=== PATIENT | female | born 1940 | race Caucasian/White ===

== ENCOUNTER → 2018-01-30 08:03 | Outpatient (CLI) | payer MEDICARE, SELFPAY | PROVIDERS: Family Provider Family Medicine; PCP Family Medicine; Visit Provider Nurse Practitioner Women's Health | DX: Z12.31 Encounter for screening mammogram for malignant neoplasm of breast (principal) | CPT/HCPCS: 77063; 77067 ==

== ENCOUNTER → 2018-02-01 13:10 | Outpatient (CLI) | payer MEDICARE, SELFPAY | PROVIDERS: Family Provider Family Medicine; PCP Family Medicine; Visit Provider Nurse Practitioner Women's Health | DX: Z78.0 Asymptomatic menopausal state (principal) | CPT/HCPCS: 77080 ==

== ENCOUNTER → 2018-03-05 08:19 | Outpatient (CLI) | payer MEDICARE, SELFPAY ==
--- NOTE | 2018-03-05 08:21 | US_ITS ---
STUDY: ULTRASOUND OF THE FEMALE PELVIS - COMPLETE REASON FOR EXAM: Female, 77 years old. Uterine polyp. LMP: The patient is postmenopausal. TECHNIQUE: Transabdominal and Transvaginal. Transvaginal ultrasound was performed for better assessment of the uterus. TECHNICAL QUALITY: Adequate. COMPARISON: Comparison is made with prior study dated January 27, 2017 and March 06, 2017. FINDINGS: The uterus is anteverted and is in a midline position. The uterus measures 4.2 cm x 2.9 cm x 2.6 cm. There is a Nabothian cyst of the cervix. The endometrium measures 2.0 mm in thickness, and is hyperechoic. Multiple echogenic densities are seen within the endometrium. There is no demonstrated endometrial mass. The uterus is of heterogeneous echotexture. Focal calcifications are seen suggestive of fibroid change of bone no focal fibroid is seen. I.U.D. - The patient does not have an I.U.D. The right ovary is non-visualized. The left ovary is non-visualized. There is no fluid in the cul-de-sac. Polycystic ovary disease: No. US/Transvaginal Non- IMPRESSION: Heterogeneous appearance of the myometrium suggesting fibroid change with calcifications. Echogenic foci seen within the endometrium. Electronically Signed: Aristides Lyle MD at 14:19 EDT Tel [phone], Service support ,
--- NOTE | 2018-03-05 08:21 | US_ITS ---
STUDY: ULTRASOUND OF THE FEMALE PELVIS - COMPLETE REASON FOR EXAM: Female, 77 years old. Uterine polyp. LMP: The patient is postmenopausal. TECHNIQUE: Transabdominal and Transvaginal. Transvaginal ultrasound was performed for better assessment of the uterus. TECHNICAL QUALITY: Adequate. COMPARISON: Comparison is made with prior study dated January 27, 2017 and March 06, 2017. FINDINGS: The uterus is anteverted and is in a midline position. The uterus measures 4.2 cm x 2.9 cm x 2.6 cm. There is a Nabothian cyst of the cervix. The endometrium measures 2.0 mm in thickness, and is hyperechoic. Multiple echogenic densities are seen within the endometrium. There is no demonstrated endometrial mass. The uterus is of heterogeneous echotexture. Focal calcifications are seen suggestive of fibroid change of bone no focal fibroid is seen. I.U.D. - The patient does not have an I.U.D. The right ovary is non-visualized. The left ovary is non-visualized. There is no fluid in the cul-de-sac. Polycystic ovary disease: No. US/Pelvic (Non ) IMPRESSION: Heterogeneous appearance of the myometrium suggesting fibroid change with calcifications. Echogenic foci seen within the endometrium. Electronically Signed: rAistides Lyle MD at 14:19 EDT Tel [phone], Service support ,
== END ==
PROVIDERS: Family Provider Family Medicine; PCP Family Medicine; Visit Provider Nurse Practitioner Women's Health
DX: N84.0 Polyp of corpus uteri (principal)
CPT/HCPCS: 76830; 76856

== ENCOUNTER 2018-12-14 20:05 | Emergency (ER) | payer MEDICARE, SELFPAY ==
[2018-12-14 20:06] VITALS: BP 186/86; PULSE 116; RESP 17; TEMP 36.9; O2SAT 98; BMI 29.0
--- NOTE | 2018-12-14 20:43 | EKG12_ITS ---
Test Reason : PALPITATIONS Blood Pressure : / mmHG Vent. Rate : 124 BPM Atrial Rate : 113 BPM P-R Int : 000 ms QRS Dur : 082 ms QT Int : 328 ms P-R-T Axes : 000 -19 243 degrees QTc Int : 471 ms Atrial fibrillation with premature ventricular or aberrantly conducted complexes Nonspecific ST and T wave abnormality Poor R-wave Progression Abnormal ECG Confirmed by SUKHWINDER PHELAN, FRANCIS ([id number]), editorial project manager CHARBEL MINER ([id number]) on 12/17/2018 1:27:04 PM Referred By: KORI Confirmed By:FRANCIS PRETTY MD
--- NOTE | 2018-12-14 20:48 | RAD_ITS ---
STUDY: X-RAY CHEST REASON FOR EXAM: Female, 78 years old. Chest palpitation TECHNIQUE: AP portable COMPARISON: February 15, 2014 FINDINGS: There is minor scarring in the lower lobes. No focal infiltration is observed. Tiny calcified granulomata in the lower lobes There is no demonstrated pleural abnormality. Borderline cardiomegaly. Normal mediastinum. Tiny calcified left hilar nodes Normal visualized pulmonary arteries. Mildly calcified aortic arch and descending thoracic aorta. Dorsal spine demonstrates spondylosis. Normal visualized ribs, clavicles, and shoulders. There is no demonstrated abnormality of the visualized soft tissue structures of the upper abdomen. RAD/Chest 1 View (Portable) IMPRESSION: Old granulomatous disease. No acute cardiopulmonary pathology Electronically Signed: Kyle Saravia MD at 21:08 EDT , Service support ,
[2018-12-14] MEDS: 0.9% Normal Saline 1,000 ML 150 ML IV (20:53)
[2018-12-14] MEDS: dilTIAZem 25 MG/5 ML Vial 10 MG IV BOLUS ×2 (20:53→22:35)
[2018-12-14 21:04] LABS: Absolute Lymphocyte Count 1.68 X10^3/ul (0.83-4.51); Absolute Neutrophil Count 4.9 X10^3/uL (2.0-7.7); Basophil# 0.02 X10^3/uL; Basophil% 0.3 % (0-1); Eosinophil# 0.28 X10^3/uL; Eosinophils% 3.6 % (0-5); Hematocrit 43.1 % (37-47); Hemoglobin 14.5 g/dl (12.0-15.0); Lymphocyte # 1.68 X10^3/ul (4.0); Lymphocyte % 21.8 % (19-41); Mean Corp Hgb Conc 33.6 g/gl (32-36); Mean Corpuscular Hgb 30.9 pg (27.0-32.0); Mean Corpuscular Volume 91.9 fL (81-99); Mean Platelet Vol. 10.3 fl (6.2-12.0); Monocyte# 0.84 X10^3/uL; Monocyte% 10.9 % (0-10); Neutrophil # 4.87 X10^3/uL (2.7-7.7); Neutrophil % 63.3 % (47-70); Platelet Count 236 K/mm3 (150-450); RBC Distribution Width CV 13.2 % (11.6-14.6); RBC Distribution Width SD 43.7 fl (35.1-43.9); Red Blood Count 4.69 M/mm3 (4.2-5.4); White Blood Count 7.7 K/mm3 (4.4-11.0)
[2018-12-14 21:06] VITALS: BP 141/94; PULSE 103; RESP 21; O2SAT 97
[2018-12-14 21:09] LABS: POSITIVE COUNT NO; POSITIVE DIFFERENTIAL NO; POSITIVE MORPHOLOGY NO
[2018-12-14 21:22] LABS: Anion Gap 8 (5-15); BUN 22 mg/dL (7-18); BUN/Creat Ratio 25.1 RATIO (10-20); Calcium,Total 8.9 mg/dL (8.5-10.1); Chloride 108 mmol/L (98-107); Creatinine, Serum 0.88 mg/dL (0.55-1.02); EST Glomerular Filtration Rate 66 mL/min (>60); Est Glom Filt Rate - Afr Amer 80 mL/min (>60); Estimated Creatinine Clearance 38.46 ml/min; Glucose 110 mg/dL (74-106); Sodium Level 143 mmol/L (136-145); Thyroid Stim Hormone (TSH) 2.82 uIU/mL (0.358-3.74)
[2018-12-14 22:00] VITALS: BP 143/78; PULSE 113; RESP 21; O2SAT 96
--- NOTE | 2018-12-14 23:01 | ED.VISSUMM ---
- ER Visit Summary Date of Service: 12/14/18 Chief Complaint: Irregular heartbeat History of Present Illness: The patient is a 78 F with a history of A. fib but states she is normally in sinus rhythm. She developed palpitations yesterday. She denies chest pain. She is on Cardizem as well as Xarelto. Patient was previously seen by Dr. Mireles but is scheduled to see Dr. Ayala in February. Physical Examination: Blood pressure is 186/86, temperature 98.4, heart rate 116, respiratory rate 17, pulse ox 98% on room air. Patient sitting upright in bed no acute distress. Head and neck examination unremarkable. Heart is irregular tachycardic. Lung sounds are clear. Abdomen is soft and nontender. Test Results: EKG is A. fib at 124 with no acute ischemia. Chest x-ray shows old granulomatous disease. CBC and chemistry studies unremarkable. Troponin negative. TSH normal. Emergency Department Course and Treatment: Patient was initially given 10 mg of IV Cardizem. Heart rate improved from 120s down to approximate 100. Blood pressure is improved. An additional 10 mg of IV Cardizem is given and heart rate is down to 83. Patient remains in atrial fibrillation. She does not want to be cardioverted. I spoke with Dr. Ayala who patient is scheduled to see. Patient is to take her Cardizem twice daily and call the office to be seen earlier than February. Patient is in agreement with this plan. She understands that if she feels worse in any way she is to return to the emergency room immediately. Treatment Plan: [] Disposition: Discharge Impression: Atrial fibrillation This note was generated with Metranome dictation software. It may contain incorrect words, spelling, and punctuation that were not noted in review of the chart prior to signing ED Disposition - Plan for ED Patient: Disposition: Home or Assisted Living Instructions: Atrial Fibrillation Referrals: Ricardo Ayala MD [STAFF PHYSICIAN] - As soon as possible Additional Instructions: Per Dr Ayala - take your Cardizem twice a day. Call office on Monday to be seen sooner.
[2018-12-14 23:14] VITALS: BP 140/78; PULSE 92; RESP 18; O2SAT 97
== END 2018-12-14 23:20 | disposition home or self-care (01) ==
PROVIDERS: Emergency Provider Emergency Medicine; Family Provider Family Medicine; PCP Family Medicine
DX: I48.91 Unspecified atrial fibrillation (principal); I10 Essential (primary) hypertension; E78.00 Pure hypercholesterolemia, unspecified; Z79.01 Long term (current) use of anticoagulants; Z79.899 Other long term (current) drug therapy
CPT/HCPCS: 71045; 80048; 84443; 84484; 85025; 93005; 96361; 96374; 96376; 99285; J7030; A4216

== ENCOUNTER → 2019-01-24 | Outpatient (CLI) | payer MEDICARE, SELFPAY ==
[2019-01-03 11:27] VITALS: BMI 28.5
--- NOTE | 2019-01-24 09:41 | ECHOD_ITS ---
Reason For Study: Murmur Procedure This was a 2D Doppler, Color Flow transthoracic echocardiogram. Exam performed in department. Left Ventricle Normal LV size. Left ventricular systolic function is normal. The estimated ejection fraction is 65 %. There is evidence of diastolic dysfunction. No regional wall motion abnormalities noted. Right Ventricle Normal RV size. Normal systolic function. Atria The left atrium is mildly enlarged. The right atrium is mildly enlarged. No doppler evidence for ASD. Mitral Valve There is no mitral annular calcification. Normal mitral valve. Mild-Moderate (1-2+) eccentric mitral valve insufficiency. Tricuspid Valve Normal tricuspid valve. Mild to moderate (1-2+) eccentric tricuspid valve insufficiency. Right ventricular systolic pressure estimated to be 36 mmHg. Aortic Valve Trisinus/trileaflet aortic valve. Normal aortic valve. Mild (1+) aortic valve insufficiency. Pulmonic Valve The pulmonic valve is not well visualized. Trivial pulmonic valve insufficiency. Great Vessels Normal sized aortic root. Pericardium/Pleural No pericardial effusion. MMode/2D Measurements & Calculations LVIDd: 3.7 cm IVSd: 1.2 cm Ao root diam: 3.2 cm LVIDs: 1.9 cm LVPWd: 0.90 cm RVDd: 3.2 cm FS: 48.3 % LAV(MOD-bp): 42.7 ml LA A4 area: 17.8 cm2 LA dimension(2D): 3.5 cm LAV(MOD-bp) Indexed: 26.3 ml/m2 LAV(MOD-sp2): 34.8 ml LAV(MOD-sp4): 48.8 ml RA A4 area: 16.4 cm2 Doppler Measurements & Calculations MV E max sascha: 98.8 cm/sec Lat Peak E' Sascha: 9.4 cm/sec Med Peak E' Sascha: 5.8 cm/sec MV A max sascha: 104.2 cm/sec E/E' lat: 10.5 E/E' med: 17.0 MV E/A: 0.95 Ao V2 max: 144.8 cm/sec AI max sascha: 352.2 cm/sec LV V1 max: 103.3 cm/sec Ao max P.4 mmHg AI max P.6 mmHg LV V1 max P.3 mmHg AI dec slope: 118.6 cm/sec2 AI P1/2t: 869.5 msec PA V2 max: 118.7 cm/sec TR max sascha: 283.4 cm/sec TR max P.5 mmHg Interpretation Summary Left ventricular systolic function is normal. The estimated ejection fraction is 65 %. The left atrium is mildly enlarged. The right atrium is mildly enlarged. Mild-Moderate (1-2+) eccentric mitral valve insufficiency. Mild to moderate (1-2+) eccentric tricuspid valve insufficiency. Mild (1+) aortic valve insufficiency. Trivial pulmonic valve insufficiency. Right ventricular systolic pressure estimated to be 36 mmHg. There is evidence of diastolic dysfunction. Ordering Physician: Ricardo Ayala Referring Physician: Kailash Chu Performed By: Sadie Mascorro MURIEL
== END | disposition home or self-care (01) ==
LOC: CVS 09:41
PROVIDERS: Family Provider Family Medicine; PCP Family Medicine; Referring Provider Internal Medicine Cardiovascular Disease; Visit Provider Internal Medicine Cardiovascular Disease
DX: I25.10 Atherosclerotic heart disease of native coronary artery without angina pectoris (principal); I48.0 Paroxysmal atrial fibrillation; I34.0 Nonrheumatic mitral (valve) insufficiency; E78.5 Hyperlipidemia, unspecified; I10 Essential (primary) hypertension; I27.20 Pulmonary hypertension, unspecified; R01.1 Cardiac murmur, unspecified
CPT/HCPCS: 93306

== ENCOUNTER → 2019-02-05 | Outpatient (CLI) | payer MEDICARE, SELFPAY ==
[2019-02-05 09:33] VITALS: BMI 28.5
--- NOTE | 2019-02-05 09:53 | BI_ITS ---
MAMMOGRAPHY - BILATERAL SCREENING 3-D TOMOSYNTHESIS REASON FOR EXAM: Female, 78 years old. Bilateral Screening 3-D tomosynthesis PERTINENT HISTORY: No significant family history. TECHNIQUE: 2-D mammograms and 3-D Tomosynthesis of the breast (s) were performed. CAD was performed. COMPARISON: 01/30/2018, 01/27/2017, 01/14/2016 FINDINGS: The breast composition is composed of scattered fibroglandular density. Scattered benign calcifications are seen. No dense spiculated masses or suspicious microcalcifications are identified. No architectural distortion is identified. There is no skin thickening or retraction. There has been no significant change since the prior study. BI/SCREEN MAMM (CAD) W/YVETTE BILAT IMPRESSION: No mammographic signs of malignancy. Routine yearly mammograms recommended. ASSESSMENT CATEGORY: BIRADS Category 2: Benign. A letter regarding these results will be sent to the patient by the facility within 30 days. FOLLOW UP RECOMMENDATION: Yearly follow up mammogram recommended. (A) Approximately 10% of breast cancers are not detected by mammography. A normal mammogram should not delay biopsy of a clinically suspicious abnormality. Electronically Signed: Favian Merritt MD at 16:22 EDT Tel [phone], Service support ,
== END | disposition home or self-care (01) ==
LOC: OPBI 09:49
PROVIDERS: Family Provider Family Medicine; PCP Family Medicine; Referring Provider Nurse Practitioner Women's Health; Visit Provider Nurse Practitioner Women's Health
DX: Z12.31 Encounter for screening mammogram for malignant neoplasm of breast (principal)
CPT/HCPCS: 77063; 77067

== ENCOUNTER → 2019-07-22 08:32 | Outpatient (CLI) | payer MEDICARE, SELFPAY ==
[2019-07-12 11:50] VITALS: BMI 29.1
[2019-07-22 09:55] LABS: AST(SGOT) 23 U/L (15-37); Alanine Aminotransfer ALT/SGPT 29 U/L (13-56); Albumin, Serum 3.5 g/dL (3.2-5.0); Alkaline Phosphatase 82 U/L (45-117); Bilirubin, Direct 0.15 mg/dL (0.00-0.30); Cholesterol 185 mg/dL (200); Globulin 4.3 g/dL (2.2-4.2); High Density Lipoprotein 71 mg/dL; Protein, Total 7.8 g/dL (6.4-8.2); Triglycerides 116 mg/dL; Very Low Density Lipoprotein 23 mg/dL (5-40)
== END ==
PROVIDERS: PCP Family Medicine; Referring Provider Internal Medicine Cardiovascular Disease; Visit Provider Internal Medicine Cardiovascular Disease
DX: E78.00 Pure hypercholesterolemia, unspecified (principal)
CPT/HCPCS: 36415; 80061; 80076

== ENCOUNTER 2019-08-25 12:39 | Emergency (ER) | payer MEDICARE, SELFPAY ==
[2019-07-12 11:50] VITALS: BMI 29.1
[2019-08-25 12:39] VITALS: BP 157/71; PULSE 57; RESP 16; TEMP 36.6; O2SAT 99; BMI 27.3
--- NOTE | 2019-08-25 12:52 | EKG12_ITS ---
Test Reason : WEAKNESS Blood Pressure : / mmHG Vent. Rate : 067 BPM Atrial Rate : 067 BPM P-R Int : 194 ms QRS Dur : 092 ms QT Int : 438 ms P-R-T Axes : 066 -20 018 degrees QTc Int : 462 ms Sinus rhythm with Premature atrial complexes Otherwise normal ECG Confirmed by DOMINIQUE PHELAN, SHIRLEY ([id number]), video news editor SEBLE RODRIGUEZ ([id number]) on 08/26/2019 3:19:19 PM Referred By: BELEN/BERNARDA Confirmed By:SHIRLEY FOX MD
--- NOTE | 2019-08-25 12:52 | RAD_ITS ---
STUDY: X-RAY CHEST REASON FOR EXAM: Female, 79 years old. weakness TECHNIQUE: PA and lateral views of the chest. COMPARISON: 12/14/2018 FINDINGS: The lungs are clear and expanded. There is no demonstrated pleural abnormality. There is moderate cardiac enlargement. Normal mediastinum and lilly. Normal visualized pulmonary arteries. Normal visualized aortic arch and descending thoracic aorta. Normal visualized thoracic spine. Normal visualized ribs, clavicles, and shoulders. There is no demonstrated abnormality of the visualized soft tissue structures of the upper abdomen. RAD/Chest PA and Lateral IMPRESSION: No active disease. Electronically Signed: Ezio Reilly MD at 13:42 EDT Tel , Service support ,
[2019-08-25 13:16] LABS: Absolute Neutrophil Count 8.6 X10^3/uL (2.0-7.7); Basophil# 0.04 X10^3/uL; Basophil% 0.4 % (0-1); Eosinophil# 0.17 X10^3/uL; Eosinophils% 1.5 % (0-5); Hematocrit 42.8 % (37-47); Hemoglobin 14.5 g/dL (12.0-15.0); Mean Corp Hgb Conc 33.9 g/dL (32-36); Mean Corpuscular Hgb 31.5 pg (27.0-32.0); Mean Platelet Vol. 9.8 fl (6.2-12.0); Monocyte# 0.79 X10^3/uL; NRBC Flagged by Analyzer 0 % (0-5); Neutrophil % 75.7 % (47-70); Platelet Count 256 K/mm3 (150-450); RBC Distribution Width CV 12.8 % (11.6-14.6); RBC Distribution Width SD 43.8 fl (35.1-43.9); White Blood Count 11.4 K/mm3 (4.4-11.0)
--- NOTE | 2019-08-25 13:25 | ED.VISSUMM ---
- ER Visit Summary Date of Service: 08/25/19 Chief Complaint: Weakness History of Present Illness: The patient is a [address] Jamie Chu. She reports that she has weakness that began today. She has had a subjective fever and chills. She has had an occasional cough for the past 2 days. It is been nonproductive. She denies any chest pain or shortness of breath. She is had 2 episodes of diarrhea today. No blood in her stools or black tarry stools. No abdominal pain, nausea, or vomiting. She denies headache. She does complain of generalized weakness. She denies any paresthesias, vertigo, or other neurologic symptoms. Physical Examination: Vitals: Stable. Afebrile. General: Well-nourished and well-developed. Head: Normocephalic atraumatic. Neck: Supple, no lymphadenopathy. No JVD. Nontender. Cardiovascular: Regular rate and rhythm. No murmurs. Respiratory: No respiratory distress. Clear to auscultation bilaterally. Abdominal: Soft, nontender, nondistended, normal bowel sounds. No guarding, rebound, or peritoneal signs. Back: Nontender. Extremities: Nontender, no edema. Skin: Normal color, no rash. Neurologic: Alert and oriented ?3. Cranial nerves II through XII are intact. Normal strength and sensation. Psych: Normal affect. Test Results: EKG is sinus at 67 with PACs and nonspecific ST changes. CBC shows a white count of 11.4 with 76 segs neutrophils and 15 lymphocytes. Chem-7 shows a potassium of 3.4, glucose of 113, BUN of 21. UA shows blood and 5-10 red blood cells. Troponin is negative. Chest x-ray is normal. Emergency Department Course and Treatment: Patient had an IV placed. She is resting comfortably. Patient's urine was sent for culture. She is given a dose of Keflex p.o. Treatment Plan: Patient be discharged on Keflex. Instructed to follow-up with her primary care physician 1 week for repeat evaluation and urinalysis. She does understand if she continues to have hematuria that she may require further evaluation with a cystoscopy. Return to the emergency department for any worsening symptoms. Disposition: To home in improved and stable condition. Impression: 1. Weakness. 2. Hematuria. This note was generated with Dragon dictation software. It may contain incorrect words, spelling, and punctuation that were not noted in review of the chart prior to signing ED Disposition - Plan for ED Patient: Instructions: WEAKNESS, Unk Cause, Hematuria Prescriptions: Cephalexin [Keflex] 500 mg PO Q12 #14 capsule Referrals: Kailash Chu MD [Primary Care Provider] - 1 Week
[2019-08-25 13:33] LABS: Anion Gap 5 (5-15); BUN 21 mg/dL (7-18); Calcium,Total 9.2 mg/dL (8.5-10.1); Chloride 107 mmol/L (98-107); Creatinine, Serum 0.91 mg/dL (0.55-1.02); EST Glomerular Filtration Rate 63 mL/min (>60); Est Glom Filt Rate - Afr Amer 77 mL/min (>60); Glucose 113 mg/dL (74-106); Potassium 3.4 mmol/L (3.5-5.1); Sodium Level 138 mmol/L (136-145)
[2019-08-25 14:47] LABS: Bacteria 0 SEEN /hpf (None Seen); Mucous, Urine 0 SEEN /hpf (<or=2+); Squamous Epithelial Cells - UA 0 SEEN /hpf (5-10); White Blood Cells 0 SEEN /hpf (0-5)
[2019-08-25 15:13] LABS: Color, Urine Yellow (Yellow); Glucose, Dipstick Normal (Normal); Ketone-Dipstick Negative (Negative); Leukocyte Esterase-Dipstick Negative /ul (Negative); Nitrite-Dipstick Negative (Negative); Occult Blood-Urine 50 /ul (Negative); Protein-Dipstick Negative (Negative); Specific Gravity, Urine 1.015 (1.002-1.030); Urine Bilirubin Dipstick Negative (Negative); Urine Clarity Clear (Clear); Urine Urobilinogen Normal (Normal)
[2019-08-25 15:24] LABS: Red Blood Cells-Urine 5-10 SEEN /hpf (0-5)
[2019-08-25 15:40] VITALS: BP 142/86; PULSE 66; O2SAT 97
[2019-08-25] MEDS: Cephalexin 250 MG Capsule 500 MG PO (15:45)
== END 2019-08-25 15:52 | disposition home or self-care (01) ==
LOC: ED 13:08
PROVIDERS: Emergency Provider Emergency Medicine; PCP Family Medicine
DX: R53.1 Weakness (principal); R31.9 Hematuria, unspecified; R68.83 Chills (without fever); R05 Cough; R19.7 Diarrhea, unspecified; I49.1 Atrial premature depolarization; I10 Essential (primary) hypertension; I48.0 Paroxysmal atrial fibrillation; I25.10 Atherosclerotic heart disease of native coronary artery without angina pectoris; E78.00 Pure hypercholesterolemia, unspecified; I27.20 Pulmonary hypertension, unspecified; Z79.01 Long term (current) use of anticoagulants; Z79.899 Other long term (current) drug therapy
CPT/HCPCS: 71046; 80048; 81001; 84484; 85025; 87086; 87088; 93005; 96360; 96361; 99284; J7040; A4216

== ENCOUNTER → 2019-12-10 08:56 | Outpatient (CLI) | payer MEDICARE, SELFPAY ==
[2019-12-10 08:53] VITALS: BMI 28.3
--- NOTE | 2019-12-10 08:56 | RAD_ITS ---
STUDY: X-RAY - LEFT HAND, ATTENTION SECOND FINGER REASON FOR EXAM: Cyst distal second finger. TECHNIQUE: 3 view(s) of the finger were obtained. COMPARISON: None. FINDINGS: Normal visualized metacarpal. Normal metacarpophalangeal joint. Normal proximal phalanx. Normal middle phalanx. Normal distal phalanx. There is mild to moderate joint space narrowing of the proximal interphalangeal joint. There are marginal osteophytes and severe joint space loss of the distal interphalangeal joint. There is soft tissue fullness at the base of the distal phalanx. 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 Soft tissue fullness at the base of the distal phalanx. Electronically Signed: Dwight Vieyra MD at 15:29 EDT Tel , Service support ,
== END ==
PROVIDERS: PCP Family Medicine; Referring Provider Orthopaedic Surgery; Visit Provider Orthopaedic Surgery
DX: M67.442 Ganglion, left hand (principal)
CPT/HCPCS: 73140

== ENCOUNTER → 2020-01-16 07:56 | Outpatient (CLI) | payer MEDICARE, SELFPAY ==
[2020-01-13 09:59] VITALS: BMI 29.5
[2020-01-16 08:41] LABS: AST(SGOT) 21 U/L (15-37); Alanine Aminotransfer ALT/SGPT 28 U/L (13-56); Albumin, Serum 3.4 g/dL (3.2-5.0); Alkaline Phosphatase 97 U/L (45-117); Bilirubin, Direct 0.09 mg/dL (0.00-0.30); Cholesterol 176 mg/dL (200); Globulin 4.1 g/dL (2.2-4.2); High Density Lipoprotein 66 mg/dL; Protein, Total 7.5 g/dL (6.4-8.2); Triglycerides 104 mg/dL; Very Low Density Lipoprotein 21 mg/dL (5-40)
== END ==
PROVIDERS: PCP Family Medicine; Referring Provider Internal Medicine Cardiovascular Disease; Visit Provider Internal Medicine Cardiovascular Disease
DX: E78.00 Pure hypercholesterolemia, unspecified (principal); E78.5 Hyperlipidemia, unspecified
CPT/HCPCS: 36415; 80061; 80076

== ENCOUNTER → 2020-03-12 10:43 | Outpatient (CLI) | payer MEDICARE, SELFPAY ==
[2020-01-13 09:59] VITALS: BMI 29.5
[2020-03-12 10:08] VITALS: BMI 29.5
--- NOTE | 2020-03-12 10:44 | BI_ITS ---
MAMMOGRAPHY - BILATERAL SCREENING REASON FOR EXAM: Female, 79 years old. Routine annual screening examination. PERTINENT HISTORY: Non-contributory. TECHNIQUE: Digital bilateral breast yvette (3D mammographic acquisition) in the CC and MLO projections. 2-D mediolateral oblique (MLO) and craniocaudad (CC) views of both breasts were obtained. CAD: Full Field Digital Mammography with Computer Added Detection was performed. COMPARISON: Comparison is made with prior study 02/05/2019 and 01/30/2018. FINDINGS: Breast Composition: There are scattered areas of fibroglandular density. There are no dominant masses or suspicious calcifications. Small benign-appearing bilateral axillary lymph nodes. No other significant abnormalities are identified. There has been no significant change since the prior study. BI/SCREEN MAMM (CAD) W/YVETTE BILAT IMPRESSION: Stable bilateral screening mammogram. Yearly follow-up mammogram recommended. (A) ASSESSMENT CATEGORY: BIRADS Category 2: Benign. A letter regarding these results will be sent to the patient by the facility within 30 days. Approximately 10% of breast cancers are not detected by mammography. A normal mammogram should not delay biopsy of a clinically suspicious abnormality. [id number] Electronically Signed: Aristides Lyle, at 12:36 EDT , Service support ,
== END ==
PROVIDERS: PCP Family Medicine; Referring Provider Nurse Practitioner Women's Health; Visit Provider Nurse Practitioner Women's Health
DX: Z12.31 Encounter for screening mammogram for malignant neoplasm of breast (principal)
CPT/HCPCS: 77063; 77067

== ENCOUNTER → 2020-05-28 16:57 | Outpatient (CLI) | payer MEDICARE, SELFPAY ==
[2020-05-28 15:59] VITALS: BMI 28.1
[2020-05-28 17:22] LABS: Absolute Lymphocyte Count 2.05 X10^3/uL (0.83-4.51); Absolute Neutrophil Count 5.4 X10^3/uL (2.0-7.7); Basophil# 0.04 X10^3/uL; Basophil% 0.5 % (0-1); Eosinophil# 0.14 X10^3/uL; Eosinophils% 1.7 % (0-5); Hematocrit 45.4 % (37-47); Hemoglobin 14.5 g/dL (12.0-15.0); Lymphocyte # 2.05 X10^3/ul (4.0); Lymphocyte % 24.4 % (19-41); Mean Corp Hgb Conc 31.9 g/dL (32-36); Mean Corpuscular Hgb 29.8 pg (27.0-32.0); Mean Corpuscular Volume 93.2 fL (81-99); Mean Platelet Vol. 9.9 fl (6.2-12.0); Monocyte# 0.78 X10^3/uL; Monocyte% 9.3 % (0-10); NRBC Flagged by Analyzer 0 % (0-5); Neutrophil # 5.37 X10^3/uL (2.7-7.7); Neutrophil % 63.9 % (47-70); Platelet Count 285 K/mm3 (150-450); RBC Distribution Width CV 12.4 % (11.6-14.6); RBC Distribution Width SD 42.9 fl (35.1-43.9); Red Blood Count 4.87 M/mm3 (4.2-5.4); White Blood Count 8.4 K/mm3 (4.4-11.0)
[2020-05-28 18:27] LABS: Anion Gap 8 (5-15); BUN 17 mg/dL (7-18); BUN/Creat Ratio 20.4 RATIO (10-20); Calcium,Total 9.2 mg/dL (8.5-10.1); Chloride 106 mmol/L (98-107); Creatinine, Serum 0.83 mg/dL (0.55-1.02); EST Glomerular Filtration Rate 70 mL/min (>60); Est Glom Filt Rate - Afr Amer 85 mL/min (>60); Glucose 99 mg/dL (74-106); Magnesium 2.2 mg/dL (1.6-2.6); Potassium 3.8 mmol/L (3.5-5.1); Sodium Level 139 mmol/L (136-145); T4 Total, Thyroxin 9.7 ug/dL (4.8-13.9); Thyroid Stim Hormone (TSH) 1.39 uIU/mL (0.358-3.74)
== END ==
PROVIDERS: PCP Family Medicine; Referring Provider Internal Medicine Cardiovascular Disease; Visit Provider Internal Medicine Cardiovascular Disease
DX: I48.0 Paroxysmal atrial fibrillation (principal); I25.10 Atherosclerotic heart disease of native coronary artery without angina pectoris; E78.5 Hyperlipidemia, unspecified
CPT/HCPCS: 36415; 80048; 83735; 84436; 84443; 85025

== ENCOUNTER → 2020-09-21 07:02 | Outpatient (CLI) | payer MEDICARE, SELFPAY ==
[2020-05-28 15:59] VITALS: BMI 28.1
[2020-09-21 08:41] LABS: AST(SGOT) 23 U/L (15-37); Alanine Aminotransfer ALT/SGPT 26 U/L (13-56); Albumin, Serum 3.4 g/dL (3.2-5.0); Alkaline Phosphatase 90 U/L (45-117); Bilirubin, Direct 0.14 mg/dL (0.00-0.30); Cholesterol 193 mg/dL (200); Globulin 4.1 g/dL (2.2-4.2); High Density Lipoprotein 66 mg/dL; Protein, Total 7.5 g/dL (6.4-8.2); Triglycerides 122 mg/dL; Very Low Density Lipoprotein 24 mg/dL (5-40)
== END ==
PROVIDERS: PCP Family Medicine; Referring Provider Internal Medicine Cardiovascular Disease; Visit Provider Internal Medicine Cardiovascular Disease
DX: E78.00 Pure hypercholesterolemia, unspecified (principal); E78.5 Hyperlipidemia, unspecified
CPT/HCPCS: 36415; 80061; 80076

== ENCOUNTER → 2020-11-13 09:46 | Outpatient (CLI) | payer MEDICARE, SELFPAY ==
[2020-11-06 14:40] VITALS: BMI 28.1
--- NOTE | 2020-11-13 09:50 | ECHOD_ITS ---
Reason For Study: CAD Procedure This was a 2D Doppler, Color Flow transthoracic echocardiogram. The exam was of adequate technical quality. Exam performed in department. Left Ventricle Normal LV size. Left ventricular systolic function is normal. The estimated ejection fraction is 65 %. There is evidence of diastolic dysfunction. No regional wall motion abnormalities noted. Right Ventricle Normal RV size. Normal systolic function. Atria The left atrium is mildly enlarged. Normal right atrium. No doppler evidence for ASD. Bubble contrast study negative for right to left interatrial shunt. Mitral Valve There is no mitral annular calcification. Normal mitral valve. Mild-Moderate (1-2+) mitral valve insufficiency. Tricuspid Valve Normal tricuspid valve. Moderate (2+) tricuspid valve insufficiency. Right ventricular systolic pressure estimated to be 45 mmHg. Aortic Valve Trisinus/trileaflet aortic valve. Normal aortic valve. Trivial aortic valve insufficiency. Pulmonic Valve The pulmonic valve is not well visualized. Trivial pulmonic valve insufficiency. Great Vessels Normal sized aortic root. Pericardium/Pleural No pericardial effusion. Medication Performed a rapid injection of agitated mix of 9 cc saline and 1cc air to assess for atrial septal defect. MMode/2D Measurements & Calculations LVIDd: 5.1 cm IVSd: 0.72 cm Ao root diam: 3.1 cm LVIDs: 3.1 cm LVPWd: 0.81 cm RVDd: 3.8 cm FS: 38.8 % LAV(MOD-bp): 42.6 ml LVAd ap4: 26.3 cm2 SV(MOD-sp4): 50.9 ml LAV(MOD-bp) Indexed: 25.2 ml/m2 LVLd ap4: 7.2 cm LAV(MOD-sp2): 48.0 ml EDV(MOD-sp4): 80.5 ml LAV(MOD-sp4): 36.1 ml EDV(sp4-el): 81.9 ml LVAs ap4: 14.2 cm2 LVLs ap4: 5.9 cm ESV(MOD-sp4): 29.6 ml ESV(sp4-el): 28.9 ml EF(MOD-sp4): 63.2 % EF(sp4-el): 64.7 % SV(sp4-el): 53.0 ml LA A4 area: 14.5 cm2 LA dimension(2D): 4.3 cm RA A4 area: 15.1 cm2 Doppler Measurements & Calculations MV E max sascha: 83.4 cm/sec Lat Peak E' Sascha: 7.6 cm/sec Med Peak E' Sascha: 4.6 cm/sec MV A max sascha: 106.4 cm/sec E/E' lat: 11.0 E/E' med: 18.0 MV E/A: 0.78 Ao V2 max: 135.2 cm/sec LV V1 max: 88.3 cm/sec PA V2 max: 124.6 cm/sec Ao max P.3 mmHg LV V1 max P.1 mmHg Ao V2 mean: 89.1 cm/sec Ao mean P.5 mmHg Ao V2 VTI: 34.0 cm TR max sascha: 322.2 cm/sec TR max P.5 mmHg ECHO/Echo Complete Interpretation Summary Left ventricular systolic function is normal. The estimated ejection fraction is 65 %. The left atrium is mildly enlarged. Mild-Moderate (1-2+) mitral valve insufficiency. Moderate (2+) tricuspid valve insufficiency. Trivial aortic valve insufficiency. Trivial pulmonic valve insufficiency. Right ventricular systolic pressure estimated to be 45 mmHg. There is evidence of diastolic dysfunction. Ordering Physician: Ricardo Ayala Referring Physician: Kailash Chu Performed By: Morena York, CARMINE, RVT
== END ==
PROVIDERS: PCP Family Medicine; Referring Provider Internal Medicine Cardiovascular Disease; Visit Provider Internal Medicine Cardiovascular Disease
DX: I25.10 Atherosclerotic heart disease of native coronary artery without angina pectoris (principal); I34.0 Nonrheumatic mitral (valve) insufficiency; I35.1 Nonrheumatic aortic (valve) insufficiency; I36.1 Nonrheumatic tricuspid (valve) insufficiency
CPT/HCPCS: 93306; A4216

== ENCOUNTER → 2020-11-26 09:09 | Outpatient (CLI) | payer MEDICARE, SELFPAY ==
[2020-11-06 14:40] VITALS: BMI 28.1
== END ==
PROVIDERS: PCP Family Medicine; Referring Provider Internal Medicine Cardiovascular Disease; Visit Provider Internal Medicine Cardiovascular Disease
DX: I48.0 Paroxysmal atrial fibrillation (principal); R00.2 Palpitations
CPT/HCPCS: 93225; 93226

== ENCOUNTER → 2021-03-23 10:24 | Outpatient (CLI) | payer MEDICARE, SELFPAY ==
[2020-05-28 15:59] VITALS: BMI 28.1
--- NOTE | 2021-03-23 10:41 | BI_ITS ---
MAMMOGRAPHY - BILATERAL SCREENING 3-D TOMOSYNTHESIS REASON FOR EXAM: Female, 80 years old. screening mammogram PERTINENT HISTORY: No significant family history. TECHNIQUE: 2-D mammograms and 3-D Tomosynthesis of the breast (s) were performed. CAD was performed. COMPARISON: 03/12/2020 FINDINGS: The breast composition is heterogeneously dense that can obscure small breast masses. Scattered benign calcifications are seen. No dense spiculated masses or suspicious microcalcifications are identified. No architectural distortion is identified. There is no skin thickening or retraction. There has been no significant change since the prior study. BI/SCRN MAMM (CAD)W/YVETTE BILAT IMPRESSION: No mammographic signs of malignancy. Routine yearly mammograms recommended. ASSESSMENT CATEGORY: BIRADS Category 1: Negative. A letter regarding these results will be sent to the patient by the facility within 30 days. FOLLOW UP RECOMMENDATION: Yearly follow up mammogram recommended. (A) Approximately 10% of breast cancers are not detected by mammography. A normal mammogram should not delay biopsy of a clinically suspicious abnormality. Electronically Signed: Ezio Reilly MD at 11:28 EDT Tel , Service support ,
== END ==
PROVIDERS: PCP Family Medicine; Referring Provider Family Medicine; Visit Provider Nurse Practitioner Women's Health
DX: Z12.31 Encounter for screening mammogram for malignant neoplasm of breast (principal)
CPT/HCPCS: 77063; 77067

== ENCOUNTER → 2021-05-19 07:26 | Outpatient (CLI) | payer MEDICARE, SELFPAY ==
[2021-05-19 08:14] LABS: AST(SGOT) 24 U/L (15-37); Alanine Aminotransfer ALT/SGPT 25 U/L (13-56); Albumin, Serum 3.3 g/dL (3.2-5.0); Alkaline Phosphatase 84 U/L (45-117); Bilirubin, Direct 0.13 mg/dL (0.00-0.30); Cholesterol 175 mg/dL (200); Globulin 4.3 g/dL (2.2-4.2); High Density Lipoprotein 70 mg/dL; Protein, Total 7.6 g/dL (6.4-8.2); Triglycerides 91 mg/dL; Very Low Density Lipoprotein 18 mg/dL (5-40)
== END ==
PROVIDERS: PCP Family Medicine; Referring Provider Nurse Practitioner Gerontology; Visit Provider Nurse Practitioner Gerontology
DX: E78.5 Hyperlipidemia, unspecified (principal)
CPT/HCPCS: 36415; 80061; 80076

== ENCOUNTER → 2021-11-02 | Outpatient (CLI) | payer MEDICARE, SELFPAY ==
[2021-11-02 16:51] LABS: Hematocrit 44.7 % (37-47); Hemoglobin 15.1 g/dL (12.0-15.0); Mean Corp Hgb Conc 33.8 g/dL (32-36); Mean Corpuscular Hgb 31.5 pg (27.0-32.0); Mean Corpuscular Volume 93.1 fL (81-99); Mean Platelet Vol. 10.4 fl (6.2-12.0); Platelet Count 277 K/mm3 (150-450); RBC Distribution Width CV 12.8 % (11.6-14.6); RBC Distribution Width SD 43.8 fl (35.1-43.9); White Blood Count 11.1 K/mm3 (4.4-11.0)
[2021-11-02 17:23] LABS: Anion Gap 8 (5-15); BUN 24 mg/dL (7-18); BUN/Creat Ratio 28.5 RATIO (10-20); Calcium,Total 9.3 mg/dL (8.5-10.1); Chloride 105 mmol/L (98-107); Creatinine, Serum 0.84 mg/dL (0.55-1.02); EST Glomerular Filtration Rate 69 mL/min (>60); Est Glom Filt Rate - Afr Amer 84 mL/min (>60); Glucose 114 mg/dL (74-106); Magnesium 2.1 mg/dL (1.6-2.6); Potassium 3.4 mmol/L (3.5-5.1); Sodium Level 138 mmol/L (136-145)
== END | disposition home or self-care (01) ==
LOC: LAB 15:25
PROVIDERS: PCP Family Medicine; Referring Provider Internal Medicine Cardiovascular Disease; Visit Provider Internal Medicine Cardiovascular Disease
DX: I48.0 Paroxysmal atrial fibrillation (principal); R00.2 Palpitations
CPT/HCPCS: 36415; 80048; 83735; 84443; 85027

== ENCOUNTER → 2021-11-10 | Outpatient (CLI) | payer MEDICARE, SELFPAY ==
[2021-11-10 08:15] LABS: AST(SGOT) 17 U/L (15-37); Alanine Aminotransfer ALT/SGPT 27 U/L (13-56); Albumin, Serum 3.4 g/dL (3.2-5.0); Alkaline Phosphatase 86 U/L (45-117); Anion Gap 5 (5-15); BUN 23 mg/dL (7-18); BUN/Creat Ratio 26.9 RATIO (10-20); Bilirubin, Direct 0.12 mg/dL (0.00-0.30); Calcium,Total 8.8 mg/dL (8.5-10.1); Chloride 106 mmol/L (98-107); Cholesterol 167 mg/dL (200); Creatinine, Serum 0.86 mg/dL (0.55-1.02); EST Glomerular Filtration Rate 68 mL/min (>60); Est Glom Filt Rate - Afr Amer 82 mL/min (>60); Globulin 4.1 g/dL (2.2-4.2); Glucose 95 mg/dL (74-106); High Density Lipoprotein 60 mg/dL; Potassium 4.2 mmol/L (3.5-5.1); Protein, Total 7.5 g/dL (6.4-8.2); Sodium Level 140 mmol/L (136-145); Triglycerides 114 mg/dL; Very Low Density Lipoprotein 23 mg/dL (5-40)
== END | disposition home or self-care (01) ==
LOC: LAB 07:15
PROVIDERS: PCP Family Medicine; Referring Provider Internal Medicine Cardiovascular Disease; Visit Provider Internal Medicine Cardiovascular Disease
DX: E87.6 Hypokalemia (principal); E78.00 Pure hypercholesterolemia, unspecified; E78.5 Hyperlipidemia, unspecified
CPT/HCPCS: 36415; 80048; 80061; 80076

== ENCOUNTER → 2021-11-23 | Outpatient (CLI) | payer MEDICARE, SELFPAY ==
--- NOTE | 2021-11-23 10:46 | ECHOD_ITS ---
Reason For Study: CAD Procedure This was a 2D Doppler, Color Flow transthoracic echocardiogram. The exam was of adequate technical quality. Exam performed in department. Left Ventricle Normal LV size. Left ventricular systolic function is normal. The estimated ejection fraction is 60 %. Diastolic function is indeterminate. No regional wall motion abnormalities noted. Right Ventricle Normal RV size. Normal systolic function. Atria The left atrium is mildly enlarged. The right atrium is mildly enlarged. No doppler evidence for ASD. Mitral Valve There is no mitral annular calcification. Normal mitral valve. Mild (1+) mitral valve insufficiency. Tricuspid Valve Normal tricuspid valve. Mild to moderate (1-2+) tricuspid valve insufficiency. Right ventricular systolic pressure estimated to be 33 mmHg. Aortic Valve Trisinus/trileaflet aortic valve. Normal aortic valve. Trivial aortic valve insufficiency. Pulmonic Valve The pulmonic valve is not well visualized. Trivial pulmonic valve insufficiency. Great Vessels Normal sized aortic root. Pericardium/Pleural No pericardial effusion. Medication Negative bubble study on previous echo. MMode/2D Measurements & Calculations LVIDd: 4.2 cm IVSd: 0.89 cm Ao root diam: 3.0 cm LVIDs: 2.3 cm LVPWd: 0.76 cm RVDd: 3.4 cm FS: 46.7 % LAV(MOD-bp): 60.0 ml LVAd ap4: 26.6 cm2 LVAd ap2: 24.2 cm2 LAV(MOD-bp) Indexed: 36.2 ml/m2 LVLd ap4: 7.4 cm LVLd ap2: 7.0 cm LAV(MOD-sp2): 68.5 ml EDV(MOD-sp4): 79.1 ml EDV(MOD-sp2): 72.6 ml LAV(MOD-sp4): 47.8 ml EDV(sp4-el): 81.3 ml EDV(sp2-el): 70.8 ml LVAs ap4: 15.1 cm2 LVAs ap2: 14.1 cm2 LVLs ap4: 6.5 cm LVLs ap2: 6.0 cm ESV(MOD-sp4): 30.4 ml ESV(MOD-sp2): 30.7 ml ESV(sp4-el): 29.5 ml ESV(sp2-el): 28.1 ml EF(MOD-sp4): 61.6 % EF(MOD-sp2): 57.8 % EF(sp4-el): 63.8 % SV(MOD-sp4): 48.8 ml SV(MOD-sp2): 41.9 ml SV(sp4-el): 51.8 ml LA A4 area: 17.6 cm2 LA dimension(2D): 3.4 cm RA A4 area: 17.2 cm2 Doppler Measurements & Calculations MV E max sascha: 60.5 cm/sec Lat Peak E' Sascha: 5.8 cm/sec Med Peak E' Sascha: 4.8 cm/sec MV A max sascha: 95.6 cm/sec E/E' lat: 10.4 E/E' med: 12.5 MV E/A: 0.63 Ao V2 max: 135.1 cm/sec AI max sascha: 389.8 cm/sec LV V1 max: 97.0 cm/sec Ao max P.3 mmHg AI max P.0 mmHg LV V1 max P.8 mmHg AI dec slope: 159.2 cm/sec2 AI P1/2t: 717.2 msec PA V2 max: 137.5 cm/sec TR max sascha: 272.1 cm/sec TR max P.0 mmHg ECHO/Echo Complete Interpretation Summary Left ventricular systolic function is normal. The estimated ejection fraction is 60 %. The left atrium is mildly enlarged. The right atrium is mildly enlarged. Mild (1+) mitral valve insufficiency. Mild to moderate (1-2+) tricuspid valve insufficiency. Trivial aortic valve insufficiency. Trivial pulmonic valve insufficiency. Right ventricular systolic pressure estimated to be 33 mmHg. Diastolic function is indeterminate. Ordering Physician: Melody Fry/Ricardo Ayala Referring Physician: Kailash Chu Performed By: Sadie Mascorro RDCS
== END | disposition home or self-care (01) ==
LOC: CVS 10:45
PROVIDERS: PCP Family Medicine; Referring Provider Physician Assistant Medical; Visit Provider Physician Assistant Medical
DX: I25.10 Atherosclerotic heart disease of native coronary artery without angina pectoris (principal); I36.1 Nonrheumatic tricuspid (valve) insufficiency; I34.0 Nonrheumatic mitral (valve) insufficiency
CPT/HCPCS: 93306

== ENCOUNTER → 2022-03-25 | Outpatient (CLI) | payer MEDICARE, SELFPAY ==
--- NOTE | 2022-03-25 08:17 | BI_ITS ---
MAMMOGRAPHY - BILATERAL SCREENING REASON FOR EXAM: Female, 81 years old. Routine annual screening examination. PERTINENT HISTORY: Non-contributory. TECHNIQUE: Digital bilateral breast yvette (3D mammographic acquisition) in the CC and MLO projections. 2-D mediolateral oblique (MLO) and craniocaudad (CC) views of both breasts were obtained. CAD: Full Field Digital Mammography with Computer Added Detection was performed. COMPARISON: Comparison is made with prior study dated 03/23/2021 and 03/12/2020. FINDINGS: Breast Composition: There are scattered areas of fibroglandular density. There are no dominant masses or suspicious calcifications. Stable small benign-appearing bilateral axillary lymph nodes. No other significant abnormalities are identified. There has been no significant change since the prior study. BI/SCRN MAMM (CAD)W/YVETTE BILAT IMPRESSION: Stable bilateral screening mammogram. Yearly follow-up mammogram recommended. (A) ASSESSMENT CATEGORY: BIRADS Category 2: Benign. A letter regarding these results will be sent to the patient by the facility within 30 days. Approximately 10% of breast cancers are not detected by mammography. A normal mammogram should not delay biopsy of a clinically suspicious abnormality. [id number] Electronically Signed: Aristides Lyle MD at 10:08 EDT ,
== END | disposition home or self-care (01) ==
LOC: OPBI 08:17
PROVIDERS: PCP Family Medicine; Visit Provider Nurse Practitioner Women's Health
DX: Z12.31 Encounter for screening mammogram for malignant neoplasm of breast (principal)
CPT/HCPCS: 77063; 77067

== ENCOUNTER 2022-05-03 07:41 | Outpatient (CLI) | payer MEDICARE, SELFPAY ==
[2022-05-03 08:57] LABS: ALB/GLOB Ratio 0.9 RATIO (0.9-2.4); AST(SGOT) 18 U/L (15-37); Alanine Aminotransfer ALT/SGPT 28 U/L (13-56); Albumin, Serum 3.5 g/dL (3.2-5.0); Alkaline Phosphatase 93 U/L (45-117); Anion Gap 7 (5-15); BUN 18 mg/dL (7-18); BUN/Creat Ratio 19.6 RATIO (10-20); Chloride 105 mmol/L (98-107); Cholesterol 180 mg/dL (200); Creatinine, Serum 0.92 mg/dL (0.55-1.02); EST Glomerular Filtration Rate 63 mL/min (>60); Est Glom Filt Rate - Afr Amer 76 mL/min (>60); Globulin 4.1 g/dL (2.2-4.2); Glucose 102 mg/dL (74-106); High Density Lipoprotein 69 mg/dL; Potassium 4.3 mmol/L (3.5-5.1); Protein, Total 7.6 g/dL (6.4-8.2); Sodium Level 141 mmol/L (136-145); Triglycerides 88 mg/dL; Very Low Density Lipoprotein 18 mg/dL (5-40)
== END 2022-05-03 23:59 | disposition home or self-care (01) ==
LOC: LAB 07:42
PROVIDERS: PCP Family Medicine; Referring Provider Physician Assistant Medical; Visit Provider Physician Assistant Medical
DX: I25.10 Atherosclerotic heart disease of native coronary artery without angina pectoris (principal); I48.0 Paroxysmal atrial fibrillation; I10 Essential (primary) hypertension; E78.5 Hyperlipidemia, unspecified
CPT/HCPCS: 36415; 80053; 80061

== ENCOUNTER → 2022-11-08 | Outpatient (CLI) | payer MEDICARE, SELFPAY ==
[2022-11-08 08:28] LABS: AST(SGOT) 20 U/L (15-37); Alanine Aminotransfer ALT/SGPT 34 U/L (13-56); Albumin, Serum 3.3 g/dL (3.2-5.0); Alkaline Phosphatase 87 U/L (45-117); Bilirubin, Direct 0.13 mg/dL (0.00-0.30); Cholesterol 161 mg/dL (200); High Density Lipoprotein 63 mg/dL; Protein, Total 7.3 g/dL (6.4-8.2); Triglycerides 99 mg/dL; Very Low Density Lipoprotein 20 mg/dL (5-40)
== END | disposition home or self-care (01) ==
LOC: LAB 07:11
PROVIDERS: PCP Nurse Practitioner Family; Referring Provider Physician Assistant Medical; Visit Provider Physician Assistant Medical
DX: E78.5 Hyperlipidemia, unspecified (principal)
CPT/HCPCS: 36415; 80061; 80076

== ENCOUNTER → 2023-04-10 | Outpatient (CLI) | payer MEDICARE, SELFPAY ==
--- NOTE | 2023-04-10 09:57 | BI_ITS ---
MAMMOGRAPHY - BILATERAL SCREENING REASON FOR EXAM: Female, 82 years old. Routine annual screening examination. PERTINENT HISTORY: Non-contributory. TECHNIQUE: Digital bilateral breast yvette (3D mammographic acquisition) in the CC and MLO projections. 2-D mediolateral oblique (MLO) and craniocaudad (CC) views of both breasts were obtained. CAD: Full Field Digital Mammography with Computer Added Detection was performed. COMPARISON: Comparison is made with prior study March 25, 2022 and March 23, 2021. FINDINGS: Breast Composition: There are scattered areas of fibroglandular density. There are no dominant masses or suspicious calcifications. Stable small benign-appearing bilateral axillary lymph nodes. No other significant abnormalities are identified. There has been no significant change since the prior study. BI/SCRN MAMM (CAD)W/YVETTE BILAT IMPRESSION: Stable bilateral screening mammogram. Yearly follow-up mammogram recommended. (A) ASSESSMENT CATEGORY: BIRADS Category 2: Benign. A letter regarding these results will be sent to the patient by the facility within 30 days. Approximately 10% of breast cancers are not detected by mammography. A normal mammogram should not delay biopsy of a clinically suspicious abnormality. [id number] Electronically Signed: Aristides Lyle MD at 11:14 EDT ,
== END | disposition home or self-care (01) ==
LOC: OPBI 09:56
PROVIDERS: PCP Nurse Practitioner Family; Referring Provider Nurse Practitioner Family; Visit Provider Nurse Practitioner Family
DX: Z12.31 Encounter for screening mammogram for malignant neoplasm of breast (principal)
CPT/HCPCS: 77063; 77067

== ENCOUNTER → 2023-05-22 | Outpatient (CLI) | payer MEDICARE, SELFPAY ==
[2023-05-22 09:02] LABS: AST(SGOT) 21 U/L (15-37); Alanine Aminotransfer ALT/SGPT 28 U/L (13-56); Albumin, Serum 3.5 g/dL (3.2-5.0); Alkaline Phosphatase 85 U/L (45-117); Bilirubin, Direct 0.18 mg/dL (0.00-0.30); Cholesterol 160 mg/dL (200); Globulin 4.2 g/dL (2.2-4.2); High Density Lipoprotein 74 mg/dL; Protein, Total 7.7 g/dL (6.4-8.2); Triglycerides 75 mg/dL; Very Low Density Lipoprotein 15 mg/dL (5-40)
== END | disposition home or self-care (01) ==
LOC: LAB 07:55
PROVIDERS: PCP Nurse Practitioner Family; Referring Provider Physician Assistant Medical; Visit Provider Physician Assistant Medical
DX: E78.00 Pure hypercholesterolemia, unspecified (principal)
CPT/HCPCS: 36415; 80061; 80076

== ENCOUNTER → 2023-05-26 | Outpatient (CLI) | payer MEDICARE, SELFPAY ==
[2023-05-26 11:42] LABS: Absolute Lymphocyte Count 1.27 X10^3/uL (0.83-4.51); Absolute Neutrophil Count 9.4 X10^3/uL (2.0-7.7); Basophil# 0.05 X10^3/uL; Basophil% 0.4 % (0-1); Eosinophil# 0.09 X10^3/uL; Eosinophils% 0.8 % (0-5); Hemoglobin 14.8 g/dL (12.0-15.0); Lymphocyte # 1.27 X10^3/ul (0.83-4.51); Lymphocyte % 10.7 % (19-41); Mean Corp Hgb Conc 32.9 g/dL (32-36); Mean Corpuscular Volume 94.3 fL (81-99); Mean Platelet Vol. 9.7 fl (6.2-12.0); Monocyte# 0.85 X10^3/uL; Monocyte% 7.2 % (0-10); NRBC Flagged by Analyzer 0 % (0-5); Neutrophil # 9.41 X10^3/uL (2.7-7.7); Neutrophil % 79.2 % (47-70); Platelet Count 272 K/mm3 (150-450); RBC Distribution Width CV 13.1 % (11.6-14.6); RBC Distribution Width SD 45.7 fl (35.1-43.9); Red Blood Count 4.77 M/mm3 (4.2-5.4); White Blood Count 11.9 K/mm3 (4.4-11.0)
[2023-05-26 12:25] LABS: Anion Gap 4 (5-15); BUN 18 mg/dL (7-18); BUN/Creat Ratio 19.2 RATIO (10-20); Calcium,Total 9.5 mg/dL (8.5-10.1); Chloride 106 mmol/L (98-107); Creatinine, Serum 0.94 mg/dL (0.55-1.02); EST Glomerular Filtration Rate 61 mL/min (>60); Est Glom Filt Rate - Afr Amer 73 mL/min (>60); Glucose 98 mg/dL (74-106); Potassium 4.2 mmol/L (3.5-5.1); Sodium Level 139 mmol/L (136-145)
== END | disposition home or self-care (01) ==
LOC: LAB 11:23
PROVIDERS: PCP Nurse Practitioner Family; Referring Provider Nurse Practitioner Family; Visit Provider Nurse Practitioner Family
DX: E87.6 Hypokalemia (principal); I48.0 Paroxysmal atrial fibrillation; I25.10 Atherosclerotic heart disease of native coronary artery without angina pectoris
CPT/HCPCS: 36415; 80048; 85025

== ENCOUNTER → 2023-06-14 | Outpatient (CLI) | payer MEDICARE, SELFPAY | END | disposition home or self-care (01) | LOC: LABSPEC 13:34 | PROVIDERS: PCP Nurse Practitioner Family; Visit Provider Nurse Practitioner Family | DX: N39.0 Urinary tract infection, site not specified (principal) | CPT/HCPCS: 87086; 87088 ==

== ENCOUNTER → 2023-11-21 | Outpatient (CLI) | payer MEDICARE, SELFPAY ==
[2023-11-21 09:20] LABS: AST(SGOT) 27 U/L (15-37); Alanine Aminotransfer ALT/SGPT 31 U/L (13-56); Albumin, Serum 3.5 g/dL (3.2-5.0); Alkaline Phosphatase 87 U/L (45-117); Bilirubin, Direct 0.18 mg/dL (0.00-0.30); Cholesterol 156 mg/dL (200); High Density Lipoprotein 70 mg/dL; Protein, Total 7.5 g/dL (6.4-8.2); Triglycerides 83 mg/dL; Very Low Density Lipoprotein 17 mg/dL (5-40)
== END | disposition home or self-care (01) ==
LOC: LAB 07:24
PROVIDERS: PCP Nurse Practitioner Family; Referring Provider Nurse Practitioner Family; Visit Provider Nurse Practitioner Family
DX: E78.00 Pure hypercholesterolemia, unspecified (principal)
CPT/HCPCS: 36415; 80061; 80076

== ENCOUNTER 2024-04-08 17:37 | Emergency (ER) | payer MEDICARE, SELFPAY ==
[2024-04-08 17:37] VITALS: BP 155/97; PULSE 91; RESP 16; TEMP 36.6; O2SAT 96; BMI 28.7
--- NOTE | 2024-04-08 18:20 | RAD_ITS ---
INDICATION: trauma EXAMINATION/TECHNIQUE: X-RAY - RIGHT XR Knee Complete 4 Views or More 4 VIEWS COMPARISON: 03/26/2017 FINDINGS: SOFT TISSUES: No soft tissue swelling or gas. No radiopaque foreign body. BONES/JOINTS: Bony elements have normal alignment with the exception of mild lateral subluxation patella. Osteophyte formation in all 3 compartments is noted without evidence of fractures. No destructive bony process. There is a minimal joint effusion. RAD/Knee 4 or More Views IMPRESSION: 1. Tricompartment degenerative changes, mild lateral subluxation of the patella. 2. No evidence of fracture destructive bony process. 3. There is a minimal joint effusion. Electronically Signed: Ezio Kruger MD at 19:11 EDT ,
[2024-04-08 21:37] VITALS: BP 136/93; PULSE 82; RESP 16; O2SAT 98
--- NOTE | 2024-04-08 22:15 | EX.ED.DYSGE1 ---
HPI History of Present Illness Chief Complaint: Lower Extremity Injury [facility] Medical History Atherosclerotic heart disease of [place] coronary artery without angina pectoris Nonrheumatic mitral (valve) insufficiency Nonrheumatic tricuspid valve regurgitation Pulmonary hypertension Paroxysmal atrial fibrillation Essential hypertension Hyperlipidemia Home Medications ?Medication ?Instructions ?Recorded ?Last Taken ?Type atorvastatin 40 mg tablet 40 mg PO DAILY 06/04/16 Unknown History cetirizine 10 mg capsule 10 mg PO DAILY 06/04/16 Unknown History B-complex with vitamin C 1 cap PO QDAY 01/30/18 Unknown History calcium 600 mg (as carbonate)-vit 1 tab PO DAILY 01/03/19 Unknown History D3 1,000 unit-vitamin K2 90 mcg tab multivitamin 1 tab PO DAILY 01/03/19 Unknown History rivaroxaban 15 mg tablet (Xarelto) 15 mg PO DAILY 01/03/19 Unknown History fluticasone propionate 50 1 spray intranasal DAILY 03/12/20 Unknown History mcg/actuation nasal spray,suspension Lactobacillus acidophilus 1 cap PO DAILY 11/22/22 Unknown History losartan 50 mg tablet 50 mg PO BID #180 tabs 01/31/23 Unknown Rx potassium chloride 20 mEq 20 meq PO DAILY #90 TABLETS 09/14/23 Unknown Rx tablet,extended release(part/cryst) (Klor-Con M) metoprolol succinate 25 mg 25 mg PO DAILY ok to take with 11/20/23 Unknown Rx tablet,extended release 24 hr Diltiazem (it is for freq PVC's) #90 tabs diltiazem HCl 180 mg capsule,24 180 mg PO DAILY #90 caps 01/04/24 Unknown Rx hr,extended release Allergy/AdvReac Type Severity Reaction Status Date / Time lisinopril Allergy Other Verified 04/08/24 17:38 Family History Brother Heart disease Sister Heart disease Brother CAD (coronary artery disease) Sudden cardiac , Onset Age: 40 Surgical History S/P left knee surgery H/O tubal ligation H/O dilation and curettage Social History Smoking Status: Never smoker alcohol intake: never substance use type: does not use caffeine: Yes Type: coffee Number of servings: 1 what type of physical activity do you participate in: walking and other details: stationary bike frequency: 3-4 times per week seatbelt use: always do you feel safe at home: Yes additional social history: EXAM Physical Exam Const Vital Signs: 04/08/24 17:37 04/08/24 21:37 Temperature 97.8 F Temperature Source Oral Pulse Rate 91 82 Respiratory Rate 16 16 Blood Pressure 155/97 H 136/93 H Blood Pressure Mean 116 107 Pulse Ox 96 98 Oxygen Delivery Method Room Air Room Air [facility] Narrative Medical decision making narrative: HISTORY OF PRESENT ILLNESS: 83-year-old female presents with right knee pain after stepping wrong on a chair. REVIEW OF SYSTEMS: Pertinent positives: Right knee pain Pertinent negatives: Numbness, tingling, loss of sensation PHYSICAL EXAM: Nursing triage notes reviewed, Vital signs reviewed Constitutional: please see mdm Extremities: No edema Neuro: Intact sensation L1-S1 dermatomal distributions. Intact 5/5 strength in hip flexion (T12-L3). Knee extension (L2-L4). Ankle dorsiflexion (L4-L5). Ankle plantar flexion (S1). Great toe extension (L5). 2+ patellar and Achilles DTRs. Skin: No rash or lesions noted MEDICAL DECISION MAKING: Chief Complaint: Right knee pain [facility] Narrative: The patient was hemodynamically stable, afebrile and nontoxic-appearing. Right lower extremity is neurovascularly intact. I considered the following differential diagnosis: Knee fracture, dislocation, arthritis, septic arthritis, compartment syndrome, DVT Patient's history and physical exam not consistent with septic arthritis, compartment syndrome, DVT. An x-ray was obtained in triage to rule out fracture dislocation. This was negative. ALL IMAGES (IF OBTAINED) HAVE BEEN PERSONALLY REVIEWED AND INTERPRETED BY MYSELF. X-ray of the right knee was read reviewed myself shows no evidence of obvious fracture or dislocation showed chronic arthritic changes. Patient likely suffered a soft tissue injury of the knee. She is ambulatory. Encouraged bracing, ice, rest, compression and elevation. Encouraged PCP follow-up for further imaging (i.e. MRI) as needed. Encouraged ice and Tylenol. The patient and/or family, caregivers express understanding. The patient and/or family, caregivers agrees with the plan. Shared decision making: I will have a discussion with the patient and or visitors regarding risk/benefits of further testing or admission. They will be made aware of of the risk/benefits inherent in this decision they will be given the opportunity to voice understanding. Total critical care time today provided was at least 0 minutes. This excludes separately billable procedures. Critical care time (if documented) is secondary to the patient having high probability of clinically significant/life threatening deterioration in the patient's condition which required my urgent intervention. Impression: 1. Acute right knee pain 2. Osteoarthritis Dispo: Discharge home This note was generated with [employer] dictation software. It may contain incorrect words, spelling, and punctuation that were not noted in review of the chart prior to signing. Radiography Diagnostic Testing: Clinical Impression(s) from Imaging Studies Knee X-Ray 04/08/24 18:20 IMPRESSION: 1. Tricompartment degenerative changes, mild lateral subluxation of the patella. 2. No evidence of fracture destructive bony process. 3. There is a minimal joint effusion. Electronically Signed: Ezio Kruger MD at 19:11 EDT , Discharge Plan Triage Chief Complaint: Lower Extremity Injury ED Provider: Provider,Ed Physician Dx/Rx/DC Orders Prescriptions: No Action B-complex with vitamin C capsule 1 cap PO QDAY Xarelto 15 mg tablet 15 mg PO DAILY calcium carb-vitamin D3-vit K2 600 mg-1,000 unit-90 mcg tablet 1 tab PO DAILY multivitamin Tablet 1 tab PO DAILY fluticasone propionate 50 mcg/actuation spray,suspension 1 spray INTRANASAL DAILY Rx Instructions: administer into each nostril atorvastatin 40 MG tablet 40 mg PO DAILY cetirizine 10 MG capsule 10 mg PO DAILY Lactobacillus acidophilus Capsule 1 cap PO DAILY losartan 50 mg tablet 50 mg PO BID Qty: 180 3RF potassium chloride [Klor-Con M20] 20 mEq tablet,ER particles/crystals 20 meq PO DAILY Qty: 90 3RF metoprolol succinate 25 mg tablet extended release 24 hr 25 mg PO DAILY Qty: 90 3RF diltiazem HCl 180 mg capsule,extended release 24 hr 180 mg PO DAILY Qty: 90 3RF Primary Care Provider: Morena Caldera Referrals: Morena Caldera, [facility] [Primary Care Provider] - Print Language: [place]
[2024-04-08 22:42] VITALS: BP 136/87; PULSE 88; RESP 18; TEMP 36.4; O2SAT 98
== END 2024-04-08 22:49 | disposition home or self-care (01) ==
LOC: ED 22:46
PROVIDERS: Emergency Provider Emergency Medicine; PCP Nurse Practitioner Family; Visit Provider Emergency Medicine
DX: M25.561 Pain in right knee (principal); I48.0 Paroxysmal atrial fibrillation; M17.11 Unilateral primary osteoarthritis, right knee; I10 Essential (primary) hypertension; I25.10 Atherosclerotic heart disease of native coronary artery without angina pectoris; E78.5 Hyperlipidemia, unspecified; Z79.899 Other long term (current) drug therapy; Z79.01 Long term (current) use of anticoagulants; W22.8XXA Striking against or struck by other objects, initial encounter
CPT/HCPCS: 73564; 99282

== ENCOUNTER → 2024-04-19 | Outpatient (CLI) | payer MEDICARE, SELFPAY ==
--- NOTE | 2024-04-19 09:58 | BI_ITS ---
MAMMOGRAPHY - BILATERAL SCREENING REASON FOR EXAM: Female, 83 years old. Routine annual screening examination. PERTINENT HISTORY: Non-contributory. TECHNIQUE: Digital bilateral breast yvette (3D mammographic acquisition) in the CC and MLO projections. 2-D mediolateral oblique (MLO) and craniocaudad (CC) views of both breasts were obtained. CAD: Full Field Digital Mammography with Computer Added Detection was performed. COMPARISON: Comparison is made with prior study April 10, 2023 and March 25, 2022. FINDINGS: Breast Composition: There are scattered areas of fibroglandular density. There are no dominant masses or suspicious calcifications. No other significant abnormalities are identified. There has been no significant change since the prior study. BI/SCRN MAMM (CAD)W/YVETTE BILAT IMPRESSION: Stable bilateral screening mammogram. Yearly follow-up mammogram recommended. (A) ASSESSMENT CATEGORY: BIRADS Category 1: Negative. A letter regarding these results will be sent to the patient by the facility within 30 days. Approximately 10% of breast cancers are not detected by mammography. A normal mammogram should not delay biopsy of a clinically suspicious abnormality. [id number] Electronically Signed: Aristides Lyle MD at 12:27 EDT ,
== END | disposition home or self-care (01) ==
LOC: OPBI 09:57
PROVIDERS: PCP Nurse Practitioner Family; Referring Provider Nurse Practitioner Women's Health; Visit Provider Nurse Practitioner Women's Health
DX: Z12.31 Encounter for screening mammogram for malignant neoplasm of breast (principal)
CPT/HCPCS: 77063; 77067

== ENCOUNTER → 2024-06-10 | Outpatient (CLI) | payer MEDICARE, SELFPAY ==
[2024-06-10 08:47] LABS: AST(SGOT) 23 U/L (15-37); Alanine Aminotransfer ALT/SGPT 27 U/L (13-56); Albumin, Serum 3.5 g/dL (3.2-5.0); Alkaline Phosphatase 84 U/L (45-117); Bilirubin, Direct 0.18 mg/dL (0.00-0.30); Cholesterol 171 mg/dL (200); Globulin 4.2 g/dL (2.2-4.2); High Density Lipoprotein 68 mg/dL; Protein, Total 7.7 g/dL (6.4-8.2); Triglycerides 111 mg/dL; Very Low Density Lipoprotein 22 mg/dL (5-40)
== END | disposition home or self-care (01) ==
LOC: LAB 08:04
PROVIDERS: PCP Nurse Practitioner Family; Referring Provider Internal Medicine Cardiovascular Disease; Visit Provider Internal Medicine Cardiovascular Disease
DX: E78.00 Pure hypercholesterolemia, unspecified (principal)
CPT/HCPCS: 36415; 80061; 80076

== ENCOUNTER → 2024-07-29 | Outpatient (CLI) | payer MEDICARE, SELFPAY | END | disposition home or self-care (01) | LOC: LABSPEC 09:13 | PROVIDERS: PCP Nurse Practitioner Family; Referring Provider Nurse Practitioner Family; Visit Provider Nurse Practitioner Family | DX: N39.0 Urinary tract infection, site not specified (principal) | CPT/HCPCS: 87086 ==

== ENCOUNTER → 2025-02-03 | Outpatient (CLI) | payer MEDICARE, SELFPAY ==
--- OUTSIDE RECORDS SUMMARY | 2025-02-03 07:26 | XMS RPT_ITS | CCD ---
Author Organization [facility] Care Team Providers Care Admitting Counselor Name Role Phone Eloise PHELAN, Lalitha Mason Unavailable [phone] Devi Gonzalez NP Unavailable Devi Gonzalez NP Unavailable Dr. Minnie Chu Primary Care Provider Dr. Minnie Chu Referring Provider Sameer Marc Attending Provider Unavailable MISSY Nelson Attending Provider Dr. Ricardo Ayala Attending Provider Dr. Minnie Chu Primary Care Provider Dr. Minnie Chu Referring Provider Dr. Ricardo Ayala Attending Provider MISSY Nelson Attending Provider Dr. Minnie Chu Referring Provider Roof WAYBILL CLERK, WAYBILL CLERK-C Louis Tolbert Attending Provider MALU Caldera-C Morena Primary Care Provider Werner WAYBILL CLERK-C Morena Primary Care Provider MALU Caldera-Erick Berg Referring Provider Carlos WAYBILL CLERKMALU-Erick Quinonez Attending Provider Werner WAYBILL CLERK-C Morena Primary Care Provider Werner WAYBILL CLERK-C Morena Referring Provider Carlos TORIBIO NPTy Quinonez Attending Provider Jaylen WAYBILL CLERK, MALU-C Louis Tolbert Attending Provider Vlad PHELAN, Minnie Peterson Primary Care Provider Carlos WAYBILL CLERK, Devi Attending Unavailable Werner, Morena Primary Care Unavailable Carlos WAYBILL CLERKDevi Referring Unavailable Werner, Morena Primary Care Unavailable Werner, Morena Referring Unavailable Escobar Okeefe Attending Unavailable Werner, Morena Primary Care Unavailable Louis York NP Attending Unavailable Werner, Morena Referring Unavailable Werner, Morena Primary Care Unavailable Escobar Okeefe Referring Unavailable Escobar Okeefe Attending Unavailable Werner, Morena Referring Unavailable Werner, Morena Attending Unavailable Werner, Morena Primary Care Unavailable Werner, Morena Referring Unavailable Werner, Morena Primary Care Unavailable Escobar Okeefe Attending Unavailable Karl De La Cruz Attending Unavailable Werner, Morena Primary Care Unavailable Werner, Morena Primary Care Unavailable Louis York NP Referring Unavailable Louis York NP Attending Unavailable Allergies Allergy Classification Reported Allergen(s) Allergy Type Date of Onset Reaction(s) Facility (4 sources) atenolol drug allergy 7 dizzy [facility] (4 sources) lisinopril drug allergy 7 [facility] (8 sources) Lisinopril Drug Allergy 3 [facility] (1 source) seasonal [Other] Propensity to adverse reactions 7 [facility] (1 source) Lisinopril Drug Allergy 5 [facility] Repository Medications Current Medications Medication Drug Class(es) Dates Sig (Normalized) Sig (Original) B-complex with vitamin C capsule (7 sources) Start: 01-30-2018 take 1 capsule by mouth once daily B-complex with vitamin C capsule Active 1 CAP PO daily January 30, 2018 9:39am Start: 01-30-2018 take 1 capsule by mo uth once daily B-complex with vitamin C capsule Active 1 CAP PO daily January 30, 2018 12:00am Start: 01-30-2018 take 1 capsule by mo uth once daily B-complex with vitamin C capsule Active 1 CAP PO daily January 29, 2018 11:00pm Calcium Carb-Vitamin D3-Vit K2 (7 sources) Start: 01-03-2019 take 1 tablet by mouth once daily Calcium Carb-Vitamin D3-Vit K2 Active 1 TABLET PO DAILY January 03, 2019 11:29am Start: 01-03-2019 take 1 tablet by jose manuel th once daily Calcium Carb-Vitamin D3-Vit K2 Active 1 TABLET PO DAILY January 03, 2019 12:00am Start: 01-03-2019 take 1 tablet by jose manuel th once daily Calcium Carb-Vitamin D3-Vit K2 Active 1 TABLET PO DAILY January 02, 2019 11:00pm fluticasone propionate 0.05 mg/actuat metered dose nasal spray (20 sources) Corticosteroid Start: 03-12-2020 take 1 spray(s) nasal route once daily Fluticasone Propionate Active 1 SPRAY INTRANASAL DAILY March 11, 2020 11:00pm administer into each nostril Start: 01-17-2017 KP FLUTICASONE PROPIONATE 50 MCG/ACT SUSP use as directed FLUTICASONE PROPIONATE [id number] Devi Gonzalez WAYBILL CLERK Start: 01-17-2017 FLUTICASONE PROPIONATE 50 MCG/ACT SUSP use as directed FLUTICASONE PROPIONATE [id number] Devi Gonzalez WAYBILL CLERK Start: 10-22-2013 End: 04-14-2020 Fluticasone Propionate Disco ntinued 1 SPRAY INTRANASAL AT BEDTIME July 12, 2019 11:51am April 14, 2020 12:49pm Start: 08-21-2013 take 1 spray(s) nasa l route once daily at bedtime fluticasone 50 mcg/actuation nasal spray Indications: Allergic rhinitis, cause unspecified , Eustachian tube dysfunction Use 1 [place] in each nostril daily at bedtime. 2 Bottle 3 08/21/2013 Active Comment on above: Use 1 [place] in each nostril daily at bedtime. Lactobacillus acidophilus (11 sources) Start: take 1 capsule by mouth once daily Lactobacillus Acidophilus Active 1 CAP PO DAILY November 22, 2022 9:21am Start: 11-22-2022 take 1 capsule by mo msh once daily Lactobacillus Acidophilus Active 1 CAP PO DAILY November 22, 2022 10:21am Start: 06-04-2016 Lactobacillus Acidophilus Active 1 EACH PO DAILY June 04, 2016 1:03pm Start: 06-04-2016 End: 11-22-2022 Lactobacillus Acidophilus Discontinued 1 EACH PO DAILY June 04, 2016 12:00am November 22, 2022 9:22am Start: 06-04-2016 End: 11-22-2022 Lactobacillus Acidophilus Discontinued 1 EACH PO DAILY June 04, 2016 1:00am November 22, 2022 10:22am Start: 06-04-2016 Lactobacillus Acidophilus Active 1 EACH PO DAILY June 04, 2016 12:00am LACTOBACILLUS AC IDOPHILUS (PROBIOTIC ORAL) Take by mouth. 0 Active Comment on above: Take by mouth. Multivitamin preparation (7 sources) Start: 01-03-2019 take 1 tablet by mouth once daily Multivitamin Active 1 TABLET PO DAILY January 03, 2019 11:30am Start: 01-03-2019 take 1 tablet by jose manuel th once daily Multivitamin Active 1 TABLET PO DAILY January 03, 2019 12:00am Start: 01-03-2019 take 1 tablet by jose manuel th once daily Multivitamin Active 1 TABLET PO DAILY January 02, 2019 11:00pm rivaroxaban 15 mg oral tablet (19 sources) Factor Xa Inhibitor Start: 12-14-2018 End: 01-03-2019 take 20 mg by mouth once daily Rivaroxaban Discontinued 20 MG PO DAILY December 13, 2018 11:00pm January 03, 2019 10:28am Start: 08-17-2018 take 1 tablet by jose manuel th once daily Rivaroxaban (Xarelto) 15 mg tablet Active 15 MG PO DAILY January 02, 2019 11:00pm Start: 01-17-2017 take 1 tablet by jose manuel th once daily XARELTO 15 MG TABS One tablet by mouth daily RIVAROXABAN [id number] Devi Gonzalez WAYBILL CLERK Comment on above: Take 1 tablet by jose manuel th once daily. Completed/Discontinued Medications Medication Drug Class(es) Dates Sig (Normalized) Sig (Original) acetaminophen 325 mg / HYDROcodone bitartrate 5 mg oral tablet (14 sources) Opioid Agonist Start: 06-06-2017 End: 01-30-2018 take 1 tablet by mouth every six hours as needed Hydrocodone-Acetami nophen Discontinued 1 - 2 TABLET PO EVERY 6 HOURS NEEDED 60 June 06, 2017 12:00am January 30, 2018 8:39am Start: 05-26-2017 End: 06-06-2017 take 1 tablet by mouth every four hours as needed Hydrocodone-Acetaminophen Discontinued 1 - 2 TABLET PO EVERY 4 HOURS NEEDED May 26, 2017 12:00am June 06, 2017 7:44am Albuterol Sulfate (7 sources) beta2-Adrenergic Agonist Start: 10-22-2013 End: 01-30-2018 Albuterol Sulfate Discontinued 8.5 GM INHALATION NEEDED October 22, 2013 5:39am January 30, 2018 9:38am Start: 10-22-2013 End: 01-30-2018 Albuterol Sulfate Discontinu ed 8.5 GM INHALATION NEEDED October 21, 2013 11:00pm January 30, 2018 8:38am amLODIPine 5 mg oral tablet (7 sources) Dihydropyridine Calcium Channel Quiana Start: 10-22-2013 End: 10-22-2013 take 5 mg by mouth once daily Amlodipine Discontinued 5 MG PO DAILY October 21, 2013 11:00pm October 22, 2013 7:03am atorvastatin 40 mg oral tablet (12 sources) HMG-CoA Reductase Inhibitor Start: 06-04-2016 take 1 tablet by mouth once daily atorvastatin (LIPITOR) 40 mg tablet Take 1 tablet by mouth once daily. 90 tablet 3 02/21/2017 Active Comment on above: Take 1 tablet by jose manuel once daily. calcium (2 sources) Phosphate Binder, Calcium Start: 01-17-2017 take 1 tablet by mouth once daily CALCIUM 600 MG TABS One tablet by mouth daily CALCIUM [id number] Devi S Carlos WAYBILL CLERK calcium carbonate 1500 mg oral tablet (2 sources) Start: 01-17-2017 take 1 tablet by mouth once daily CALCIUM 600 MG TABS One tablet by mouth daily CALCIUM [id number] Devi S [place] WAYBILL CLERK calcium carbonate 600 mg / cholecalciferol 125 unt oral tablet (1 source) Vitamin D Start: 12-15-2011 Calcium-Cholecalci ferol, D3, (CALCIUM 600 + D) 600-125 mg-unit Tab once daily. 0 12/15/2011 Active Comment on above: once daily. calcium polycarbophil 625 mg oral tablet (7 sources) Start: 06-04-2016 End: 01-30-2018 take 5 tablets by mouth once daily Calcium Polycarbophil Discontinued 5 TABLET PO DAILY June 04, 2016 12:00am January 30, 2018 8:38am cephalexin 500 mg oral capsule (7 sources) Cephalosporin Antibacterial Start: 08-25-2019 End: 12-10-2019 take 500 mg by mouth every twelve hours Cephalexin Discontinued 500 MG PO EVERY 12 HOURS August 25, 2019 12:00am December 10, 2019 7:57am cetirizine hydrochloride 10 mg oral tablet (12 sources) Histamine-1 Receptor Antagonist Start: 06-04-2016 take 10 mg by mouth once daily Cetirizine Active 10 MG PO DAILY June 04, 2016 12:00am Start: 09-09-2013 take 1 tablet by jose manuel once daily ZYRTEC ALLERGY 10 MG TABS One tablet by mouth daily CETIRIZINE HCL [id number] Devi Gonzalez WAYBILL CLERK Comment on above: Take 1 tablet by jose manuel once daily. 24 hr dilTIAZem hydrochloride 180 mg extended release oral capsule (20 sources) Calcium Channel Quiana Start: 01-13-2020 End: 01-04-2023 take 180 mg by mouth twice daily Diltiazem Hcl Discontinued 180 MG PO TWICE A DAY 180 January 10, 2022 9:41am January 04, 2023 8:27pm Start: 01-01-2019 End: 12-10-2019 take 180 mg by mouth twice daily Diltiazem Hcl Discontinued 180 MG PO TWICE A DAY 180 January 25, 2019 4:04pm December 10, 2019 7:57am Start: 10-22-2013 End: 01-01-2019 take 1 capsule by mouth once daily diltiazem CR (TIAZAC, TAZTIA XT) 180 mg 24 hr capsule Take 1 capsule by mouth once daily. 90 capsule 3 02/21/2017 Active Comment on above: Take 1 capsule by mo [facility] once daily. estradiol 0.1 mg/ml vaginal cream (1 source) Estrogen Start: 01-18-20 16 estradiol (ESTRACE) 0.01 % (0.1 mg/gram) vaginal cream Indications: Postmenopausal atrophic vaginitis Apply a pea sized amount to vagina 2-3 times per week. 1 Tube 3 01/18/2016 Active Comment on above: Apply a pea sized am ount to vagina 2-3 times per week. Fiber (1 source) Start: 08-12-19 09 fiber(FIBER DIET TAB) 6 tablets daily 0 08/12/2008 Active Comment on above: 6 tablets daily Lactobacillus (4 sources) Start: 01-18-20 take 1 tablet by mouth once daily PROBIOTIC ACIDOPHILUS TABS One tablet by mouth daily LACTOBACILLUS [id number] Devi Gonzalez WAYBILL CLERK losartan potassium 50 mg oral tablet (20 sources) Angiotensin 2 Receptor Quiana Start: 11-14-19 End: 02-01-20 Losartan Discontinued 0 .ROUTE .COMPLEX 180 January 27, 2022 12:05pm November 22, 2022 9:22am TAKE 1 TABLET TWICE A DAY Start: 06-04-2016 End: 11-13-2020 take 1 tablet by mouth once daily losartan (COZAAR) 50 mg tablet Indications: Essential hypertension Take 1 tablet by mouth once daily. 90 tablet 3 02/21/2017 Active Start: 10-22-2013 End: 10-22-2013 take 100 mg by mouth once daily Losartan Potassium Dis continued 100 MG PO DAILY October 21, 2013 11:00pm October 22, 2013 7:04am Comment on above: Take 1 tablet by jose manuel once daily. metoprolol tartrate 25 mg oral tablet (20 sources) beta-Adrenergic Quiana Start: 10-14-2022 End: 10-14-2022 take 12.5 mg by mouth twice daily Metoprolol Tartrate Discontinued 12.5 MG PO TWICE A DAY October 14, 2022 7:20am October 14, 2022 7:21am Start: 10-14-2022 End: 11-22-2022 take 25 mg by mouth once daily Metoprolol Succinate Ac tive 25 MG PO DAILY 90 November 22, 2022 9:57am Start: 10-13-2022 End: 10-14-2022 take 25 mg by mouth once daily as needed Metoprolol Tartrate Discontinued 25 MG PO .COMPLEX October 12, 2022 11:00pm October 14, 2022 7:21am 25 mg orally once per day prn for increased HR and palps.; Start: 11-22-2021 End: 04-14-2022 take 25 mg by mouth twice daily Metoprolol Tartrate Di scontinued 25 MG PO TWICE A DAY 60 December 14, 2021 9:43am April 14, 2022 9:50am Start: 11-02-2021 End: 11-22-2021 take 25 mg by mouth once daily Metoprolol Succinate Di scontinued 25 MG PO DAILY November 01, 2021 11:00pm November 22, 2021 7:40am Start: 11-06-2020 End: 11-02-2021 take 25 mg by mouth once daily Metoprolol Tartrate Dis continued 12.5 MG PO TWICE A DAY November 06, 2020 1:43pm November 02, 2021 2:13pm On Hold: Order Changed 25 mg PO daily; Start: 10-27-2020 End: 11-06-2020 take 25 mg by mouth once daily Metoprolol Tartrate Dis continued 25 MG PO DAILY October 27, 2020 9:45am November 06, 2020 1:43pm 25 mg PO daily; Start: 06-04-2020 End: 10-27-2020 take 1 tablet by mouth twice daily Metoprolol Tartrate Discontinued 0 .ROUTE .COMPLEX 180 September 15, 2020 8:25am October 27, 2020 9:46am TAKE 1 TABLET BY MOUTH TWICE A DAY Start: 05-28-2020 End: 06-04-2020 take 25 mg by mouth twice daily Metoprolol Tartrate Di scontinued 25 MG PO TWICE A DAY 60 May 28, 2020 12:00am June 04, 2020 5:27pm MULTIPLE VITAMINS-MINERALS (2 sources) Start: 01-17-2017 take 1 tablet by mouth once daily MULTIVITAMIN ADULTS 50+ TABS One tablet by mouth daily MULTIPLE VITAMINS-MINERALS [id number] Devi S Carlos WAYBILL CLERK MULTIPLE VITAMINS-MINERALS (2 sources) Start: 01-17-2017 take 1 tablet by mouth once daily MULTIVITAMIN ADULTS 50+ TABS One tablet by mouth daily MULTIPLE VITAMINS-MINERALS [id number] Devi S [place] WAYBILL CLERK ONE DAILY MULTI-VITAMIN TAB (1 source) Start: 01-13-2006 ONE DAILY MULTI-VITAMIN TAB Take one(1) tablet daily. 0 01/13/2006 Active Comment on above: Take one(1) tablet d aily. potassium chloride 20 meq extended release oral tablet (20 sources) Start: 11-03-2021 End: 10-24-2022 take 20 mEq by mouth once daily Potassium Chloride Discontinued 20 MEQ PO DAILY 90 November 25, 2021 1:21pm October 24, 2022 9:05am Psyllium (4 sources) Start: 01-17-2017 EQ FIBER THERAPY 0.52 GM CAPS Take five capsules daily PSYLLIUM [id number] Devi Gonzalez NP Vitamin B Complex (1 source) vitamin B comple x (B COMPLEX 1 ORAL) Take by mouth. 0 Active Comment on above: Take by mouth. Problems Active Problems Problem Classification Problem Date Documented Da te Episodic/Chronic Cardiac dysrhythmias (14 sources) Paroxysmal atrial fibrillation; Translations: [Paroxysmal atrial fibrillation] Onset: 12-26-2013 Chronic Cardiac dysrhythmias (8 sources) Palpitations; Translations: [Palpitations] Onset: 08-13-2024 11-23-2020 Episodic Coronary atherosclerosis and other heart disease (13 sources) Coronary atherosclerosis; Translations: [Atherosclerotic heart disease of [place] coronary artery without angina pectoris] Onset: 03-21-2005 Chronic Disorders of lipid metabolism (14 sources) Hyperlipidemia; Translations: [Hyperlipidemia, unspecified] Onset: 03-21-2005 Chronic Essential hypertension (13 sources) Essential hypertension; Translations: [Essential (primary) hypertension] Onset: 08-06-2012 Chronic Fluid and electrolyte disorders (8 sources) Hypokalemia; Translations: [Hypokalemia] 11-03-2021 Episodic Genitourinary congenital anomalies (1 source) Multiple congenital cysts of kidney; 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, unspecified] Onset: 07-31-2008 07-31-2008 Chronic Heart valve disorders (20 sources) Aortic incompetence, non-rheumatic ; Translations: [Nonrheumatic aortic (valve) insufficiency] Chronic Osteoarthritis (7 sources) Osteoarthritis of finger joint; Translations: [Primary osteoarthritis, unspecified hand] 10-27-2020 Chronic Other upper respiratory disease (1 source) Allergic rhinitis; Translations: [Allergic rhinitis, unspecified] Onset: 01-13-2006 01-13-2006 Chronic Pulmonary heart disease (10 sources) Pulmonary hypertension; Translations: [Pulmonary hypertension, unspecified] Chronic Unclassified (2 sources) Screening mammography ; Translations: [Encounter for screening mammogram for malignant neoplasm of breast] Onset: 01-17-2017 01-17-2017 Unclassified (2 sources) Gynecologic examination ; Translations: [Encounter for gynecological examination (general) (routine) without abnormal findings] Onset: 01-17-2017 01-17-2017 Urinary tract infections (1 source) Urinary tract infection, site not specified; Translations: [Urinary tract infection, site not specified] Onset: 08-14-2024 Episodic Past or Other Problems Problem Classification Problem Date Documented Da te Episodic/Chronic Abdominal pain (4 sources) Pain in pelvis; Translations: [Pelvic and perineal pain] Onset: 01-17-2017 01-17-2017 Episodic Genitourinary symptoms and ill-defined conditions (2 sources) Endometrium thickened; Translations: [Microscopic hematuria] Onset: 07-31-2008 02-21-2017 Episodic Other diseases of kidney and ureters (1 source) Disorder of kidney and/or ureter; Translations: [Disorder of kidney and ureter, unspecified] Onset: 07-31-2008 07-31-2008 Episodic Other non-traumatic joint disorders (1 source) Pain in right knee; Translations: [Pain in right knee] Onset: 04-30-2024 Episodic Other screening for suspected conditions (not mental disorders or infectious disease) (1 source) Encounter for screening mammogram for malignant neoplasm of breast; Translations: [Encounter for screening mammogram for malignant neoplasm of breast] Onset: 05-13-2024 Episodic Results Test Name Value Interpretation Reference Range Facility 12 Lead EKG performed by [facility] on 08-13-2024 12 [place] [address] 12 Lead EKG performed by [facility] 08/13/24 0827 MR#: [id number] Acct: [id number] Name: NORMA CASTELLANOS Rep #: [id number] : 1940 84 From: Escobar Okeefe MD Attending Dr: Dr. Escobar Okeefe MD Status: DE P [facility] Ordering Dr: Escobar Okeefe MD Date: 08/13/24 [place] [facility] Sex: F C Admitted: [facility]/12 Lead EKG performed by [facility] ECG Report Interpretation -------Atrial fibrillation -irregular conduction Low voltage in precordial leads. -Poor R-wave progression -may be secondary to pulmonary disease - Nonspecific T-abnormality. ABNORMAL Electronically signed on 08/13/2024 at 10:[address] Escobar Okeefe [employer] Version 5848 08/13/24 1102 Date Escobar Okeefe MD CC: STEFANO Morena Caldera Date Dictated: 08/13/24826 Date Transcribed: 08/13/24826 Rn Provider Relations: Signed Normal [facility] Cardiology Visit Reporton Cardiology Visit Report [facility] [address] [place] [address] OFFICE VISIT Date of Service: 08/13/24 MR#: [id number] Acct: [id number] Name: NORMA CASTELLANOS Rep #: [id number] : 1940 Provider: Dr. Escobar chavez MD Age/Sex: 84/F Location: [facility] Status: Signed HPI HPI History of Present Illness Details: Patient is 84-year-old white female that comes in today for monitoring of her cardiovascular disease. She carries a history of minimal coronary disease on a remote catheterization. She has a history of paroxysmal atrial fibrillation valvular heart disease with mild AI MR and TR. She has minimal elevation of her pulmonary artery pressures at 33 mmHg this was on echocardiogram done November 2021. She also has a history of hyperlipidemia and hypertension. The patient is exercising on the elliptical for 30 minutes 3 days a week and she walks the other 2 days a week. The patient denies any drop-off in her exercise tolerance. She denies any PND orthopnea denies any syncope or near syncope or lightheaded spells. She tells me that she really cannot tell when she is in atrial fibrillation anymore. Her rhythm seems to be fairly regular but her EKG in the office today shows atrial fibrillation with a controlled ventricular response at 70 bpm she has a low voltage in the precordial leads with poor R wave progression and nonspecific T wave changes. The patient brought in a list of blood pressures and heart rates the lowest heart rate was 52 the maximum was in the 80 to 90 bpm range. This represents excellent control for her rate meant management. It does appear that she is in atrial fibrillation most of the time now. But she is asymptomatic and aerobically active without restrictions. The patient denies any nuisance bleeding. I did encourage her to reach out to her insurance company to ascertain if there is a financially more beneficial way of her getting her Xarelto or if Eliquis might be cheaper for her. Intake Vital Signs 04/08/24 17:37 08/13/24 10:24 Height 5 ft 5 ft Weight: 141 lb BMI 27.5 BP 109/71 Blood Pressure Location Lt brachial Position Sitting Respiration 18 Pulse 76 Pulse Source Monitor Pulse Oximetry (%) 93 Oxygen Delivery Method room air Intake Visit Reasons: 6 M FU Aircraft Seat Upholsterer Required: No Accompanied by: Self Is patient in pain?: No Allergies lisinopril Allergy (Verified 08/13/24 10:24) Other Medications ???Medication ???Instructions ???Recorded ???Confirmed ???Type atorvastatin 40 mg tablet 40 mg PO DAILY 06/04/16 08/13/24 H istory cetirizine 10 mg capsule 10 mg PO DAILY 06/04/16 08/13/24 H istory B-complex with vitamin C 1 cap PO QDAY 01/30/18 08/13/24 Hi story calcium 600 mg (as carbonate)-vit 1 tab PO DAILY 01/03/19 08/13/24 History D3 1,000 unit-vitamin K2 90 mcg tab multivitamin 1 tab PO DAILY 01/03/19 08/13/24 H istory rivaroxaban 15 mg tablet (Xarelto) 15 mg PO DAILY 01/03/19 08/13/24 History fluticasone propionate 50 1 spray intranasal DAILY 03/12/20 08/13/24 History mcg/actuation nasal spray,suspension Lactobacillus acidophilus 1 cap PO DAILY 11/22/22 08/13/24 H istory potassium chloride 20 mEq 20 meq PO DAILY #90 TABLETS 08/13/24 Rx tablet,extended release(part/cryst) (Klor-Con M) metoprolol succinate 25 mg 25 mg PO DAILY ok to take with 09/0908/13/24 Rx tablet,extended release 24 hr Diltiazem (it is for freq PVC's) #90 tabs diltiazem HCl 180 mg capsule,24 180 mg PO DAILY #90 caps 01/04/24 08/13/24 Rx hr,extended release losartan 50 mg tablet 50 mg PO BID #180 TABLETS 04/30/24 08/13/24 Rx Ejection fraction %: 60 Have you fallen in the past year?: No PFSH Medical History Atherosclerotic heart disease of [place] coronary artery without angina pectoris Nonrheumatic mitral (valve) insufficiency Nonrheumatic tricuspid valve regurgitation Pulmonary hypertension Paroxysmal atrial fibrillation Essential hypertension Hyperlipidemia Surgical History S/P left knee surgery H/O tubal ligation H/O dilation and curettage Family History Brother Heart disease Sister Heart disease Brother CAD (coronary artery disease) Sudden cardiac , Onset Age: 40 Social History Smoking Status: Never smoker alcohol intake: never substance use type: does not use caffeine: Yes Type: coffee Number of servings: 1 what type of physical activity do you participate in: walking and other details: stationary bike frequency: 3-4 times per week seatbelt use: always do y (more content not included)... Normal [facility] Urine Cultureon 2024 URC Culture exhibits no growth. Normal [facility] Comment on above: Performed By: #### M 100.2200 #### [facility] [address] [place], [address] Lipid Profileon 06-10-2024 Cholesterol [Mass/Vol] 171 mg/dL Normal 200 [facility] Comment on above: Result Comment: <200 mg/dL Desirable 200-240 mg/dL Borderline >240 mg/dL High Risk Performed By: #### L 500.4100, L500.3400 #### [facility] [address] [facility] [address] [facility] [place], [place], [id number] Cholesterol in HDL [Mass/Vol] 68 mg/dL Normal [facility] Comment on above: Result Comment: The drugs N-Acetylcysteine and Metamizole may falsely depress this assay. Reference Range HDL <40 mg/dL Low HDL Cholesterol HDL >or= 60 mg/dL High HDL Cholesterol Performed By: #### L 500.4100, L500.3400 #### [facility] [address] [place], [address] Cholesterol in LDL [Mass/Vol] 81 mg/dL Normal 0-130 [facility] Comment on above: Performed By: #### L 500.4100, L500.3400 #### [facility] [address] [place], [address] Cholesterol in VLDL [Mass/Vol] 22 mg/dL Normal 5-40 [facility] Comment on above: Performed By: #### L 500.4100, L500.3400 #### [facility] [address] [place], [address] Triglyceride [Mass/Vol] 111 mg/dL Normal [facility] Comment on above: Result Comment: The drugs N-Acetylcysteine and Metamizole may falsely depress this assay. Serum Triglycerides Reference Interval Normal <150 mg/dL Borderline high 150 - 199 mg/dL High 200 - 499 mg/dL Very High > or = 500 mg/dL Performed By: #### L 500.4100, L500.3400 #### [facility] [address] [place], [address] Liver Profileon 06-10-2024 Albumin [Mass/Vol] 3.5 g/dL Normal 3.2-5.0 [facility] Comment on above: Performed By: #### L 500.4100, L500.3400 #### [facility] [address] [place], [address] ALK P 84 U/L Normal 45-117 [facility] Comment on above: Performed By: #### L 500.4100, L500.3400 #### [facility] [address] [place], [address] ALT [Catalytic activity/Vol] 27 U/L Normal 13-56 [facility] Comment on above: Performed By: #### L 500.4100, L500.3400 #### [facility] [address] [place], [address] AST [Catalytic activity/Vol] 23 U/L Normal 15-37 [facility] Comment on above: Performed By: #### L 500.4100, L500.3400 #### [facility] [address] [place], [address] Bilirubin [Mass/Vol] 0.80 mg/dL Normal 0.20-1.00 [facility] Comment on above: Result Comment: For patients on eltrombopag therapy, use of Dimension [place] TBIL is not recommended. Performed By: #### L 500.4100, L500.3400 #### [facility] [address] [place], [address] Bilirubin.direct [Mass/Vol] 0.18 mg/dL Normal 0.00-0.30 [facility] Comment on above: Performed By: #### L 500.4100, L500.3400 #### [facility] [address] [place], [address] Globulin (S) [Mass/Vol] 4.2 g/dL Normal 2.2-4.2 [facility] Comment on above: Performed By: #### L 500.4100, L500.3400 #### [facility] [address] [place], [address] T PROT 7.7 g/dL Normal 6.4-8.2 [facility] Comment on above: Performed By: #### L 500.4100, L500.3400 #### [facility] [address] [place], [address] SCRN MAMM (CAD)W/YVETTE BILATo n 04-19-2024 SCRN MAMM (CAD)W/YVETTE BILAT [facility] Imaging Services [address] [place] [address] SCRN MAMM (CAD)W/YVETTE BILAT MR#: [id number] Acct: [id number] Name: NORMA CASTELLANOS Rep #: [id number] : 1940 F 83 From: Aristides means MD PCP: Morena Caldera NP-C Status: REG CL Study: SCRN MAMM (CAD)W/YVETTE BILAT Date of Exam: 07/12 Exam# [id number] Ordering Dr: Devi Gonzalez NP WAYBILL CLERK -C [id number] MAMMOGRAPHY - BILATERAL SCREENING REASON FOR EXAM: Female, 83 years old. Routine annual screening examination. PERTINENT HISTORY: Non-contributory. TECHNIQUE: Digital bilateral breast yvette (3D mammographic acquisition) in the CC and MLO projections. 2-D mediolateral oblique (MLO) and craniocaudad (CC) views of both breasts were obtained. CAD: Full Field Digital Mammography with Computer Added Detection was performed. COMPARISON: Comparison is made with prior study April 10, 2023 and March 25, 2022. FINDINGS: Breast Composition: There are scattered areas of fibroglandular density. There are no dominant masses or suspicious calcifications. No other significant abnormalities are identified. There has been no significant change since the prior study. BI/SCRN MAMM (CAD)W/YVETTE BILAT IMPRESSION: Stable bilateral screening mammogram. Yearly follow-up mammogram recommended. (A) ASSESSMENT CATEGORY: BIRADS Category 1: Negative. A letter regarding these results will be sent to the patient by the facility within 30 days. Approximately 10% of breast cancers are not detected by mammography. A normal mammogram should not delay biopsy of a clinically suspicious abnormality. [id number] Electronically Signed: Aristides Lyle MD at 12:27 EDT , CC: STEFANO Gonzalez; STEFANO Caldera Rn Provider Relations: Signed Normal [facility] Emergency Department Summary on 04-08-2024 Emergency Department Summary [facility] Medical Records Department [address] [place] [address] Emergency Department Summary 04/08/24 MR#: [id number] Acct: [id number] Name: NORMA CASTELLANOS Rep #: [id number] : 1940 83 From: Karl De La Cruz DO PCP: STEFANO Casiano Status:PRE ER Location: ED HPI History of Present Illness Chief Complaint: Lower Extremity Injury [facility] Medical History Atherosclerotic heart disease of [place] coronary artery without angina pectoris Nonrheumatic mitral (valve) insufficiency Nonrheumatic tricuspid valve regurgitation Pulmonary hypertension Paroxysmal atrial fibrillation Essential hypertension Hyperlipidemia Home Medications ???Medication ???Instructions ???Recorded ???Last Taken ???Type atorvastatin 40 mg tablet 40 mg PO DAILY 06/04/16 Unknown History cetirizine 10 mg capsule 10 mg PO DAILY 06/04/16 Unknown History B-complex with vitamin C 1 cap PO QDAY 01/30/18 Unknown History calcium 600 mg (as carbonate)-vit 1 tab PO DAILY 01/03/19 Unknown History D3 1,000 unit-vitamin K2 90 mcg tab multivitamin 1 tab PO DAILY 01/03/19 Unknown History rivaroxaban 15 mg tablet (Xarelto) 15 mg PO DAILY 01/03/19 Unknown History fluticasone propionate 50 1 spray intranasal DAILY 03/12/20 Unknown History mcg/actuation nasal spray,suspension Lactobacillus acidophilus 1 cap PO DAILY 11/22/22 Unknown History losartan 50 mg tablet 50 mg PO BID #180 tabs 01/31/23 Unknown Rx potassium chloride 20 mEq 20 meq PO DAILY #90 TABLETS 09/14/23 Unknown Rx tablet,extended release(part/cryst) (Klor-Con M) metoprolol succinate 25 mg 25 mg PO DAILY ok to take with 11/20/23 Unknown Rx tablet,extended release 24 hr Diltiazem (it is for freq PVC's) #90 tabs diltiazem HCl 180 mg capsule,24 180 mg PO DAILY #90 caps 01/04/24 Unknown Rx hr,extended release Allergy/AdvReac Type Severity Reaction Status Date / Time lisinopril Allergy Other Verified 04/08/24 17:38 Family History Brother Heart disease Sister Heart disease Brother CAD (coronary artery disease) Sudden cardiac , Onset Age: 40 Surgical History S/P left knee surgery H/O tubal ligation H/O dilation and curettage Social History Smoking Status: Never smoker alcohol intake: never substance use type: does not use caffeine: Yes Type: coffee Number of servings: 1 what type of physical activity do you participate in: walking and other details: stationary bike frequency: 3-4 times per week seatbelt use: always do you feel safe at home: Yes additional social history: EXAM Physical Exam Const Vital Signs: 04/08/24 17:37 04/08/24 21:37 Temperature 97.8 F Temperature Source Oral Pulse Rate 91 82 Respiratory Rate 16 16 Blood Pressure 155/97 H 136/93 H Blood Pressure Mean 116 107 Pulse Ox 96 98 Oxygen Delivery Method Room Air Room Air [facility] MDM Narrative Medical decision making narrative: HISTORY OF PRESENT ILLNESS: 83-year-old female presents with right knee pain after stepping wrong on a chair. REVIEW OF SYSTEMS: Pertinent positives: Right knee pain Pertinent negatives: Numbness, tingling, loss of sensation PHYSICAL EXAM: Nursing triage notes reviewed, Vital signs reviewed Constitutional: please see mdm Extremities: No edema Neuro: Intact sensation L1-S1 dermatomal distributions. Intact 5/5 strength in hip flexion (T12- L3). Knee extension (L2-L4). Ankle dorsiflexion (L4-L5). Ankle plantar flexion (S1). Great toe extension (L5). 2+ patellar and Achilles DTRs. Skin: No rash or lesions noted MEDICAL DECISION MAKING: Chief Complaint: Right knee pain MDM Narrative: The patient was hemodynamically stable, afebrile and nontoxic-appearing. Right lower extremity is neurovascularly intact. I considered the following differential diagnosis: Knee fracture, dislocation, arthritis, septic arthritis, compartment syndrome, DVT Patient's history and physical exam not consistent with septic arthritis, compartment syndrome, DVT. An x-ray was obtained in triage to rule out fracture dislocation. This was negative. ALL IMAGES (IF OBTAINED) HAVE BEEN PERSONALLY REVIEWED AND INTERPRETED BY MYSELF. X-ray of the right knee was read reviewed myself shows no evidence of obvious fracture or dislocation showed chronic arthritic changes. Patient likely suffered a soft tissue injury of the knee. She is ambulatory. Encouraged bracing, ice, rest, compression and elevation. Encouraged PCP follow-up for further imaging (i.e. MRI) as needed. Encouraged ice and Tylenol. The patient and/or family, caregivers (more content not included)... Normal [facility] Knee 4 or More Viewson 04-08 Knee 4 or More Views [facility] Imaging Services [address] [place] [address] Knee 4 or More Views MR#: [id number] Acct: [id number] Name: NORMA CASTELLANOS Rep #: [id number] : 1940 F 83 From: Ezio Esquivel PCP: STEFANO Casiano Status: PRE ER Study: Knee 4 or More Views Date of Exam: 04/08/24 Exam# [id number] Ordering Dr: Tim Herring -[id number] INDICATION: trauma EXAMINATION/TECHNIQ UE: X-RAY - RIGHT XR Knee Complete 4 Views or More 4 VIEWS COMPARISON: 03/26/2017 FINDINGS: SOFT TISSUES: No soft tissue swelling or gas. No radiopaque foreign body. BONES/JOINTS: Bony elements have normal alignment with the exception of mild lateral subluxation patella. Osteophyte formation in all 3 compartments is noted without evidence of fractures. No destructive bony process. There is a minimal joint effusion. RAD/Knee 4 or More Views IMPRESSION: 1. Tricompartment degenerative changes, mild lateral subluxation of the patella. 2. No evidence of fracture destructive bony process. 3. There is a minimal joint effusion. Electronically Signed: Ezio Kruger MD at 19:11 EDT , CC: STEFANO Caldera; ED PHYSICIAN PROVIDER Rn Provider Relations: Signed Normal [facility] Cardiology Visit Reporton Cardiology Visit Report [facility] [address] [place] [address] OFFICE VISIT Date of Service: 11/27/23 MR#: [id number] Acct: [id number] Name: NORMA CASTELLANOS Rep #: [id number] : 1940 Provider: STEFANO tamez Age/Sex: 83/F Location: [facility] Status: Signed HPI HPI History of Present Illness Details: Norma Castellanos is an 83-year-old white female who presents today for outpatient cardiovascular follow- up of her history of CAD (previously reported as mild), paroxysmal atrial fibrillation, valvular heart disease with AI, MR, and TR, superimposed upon hyperlipidemia and hypertension. She remains very active for her age. She denies chest, arm, jaw, or neck discomfort. She denies palpitations. She denies bilateral lower extremity edema. She denies claudication. She states shortness of breath with activity such as going up stairs. This is not worsening. She denies shortness of breath at rest, orthopnea, or PND. She denies chronic cough. She denies significant, sudden weight gain. She denies lightheadedness, dizziness, near-syncope, or syncope. She denies blood in urine, blood in stool, or epistaxis. He denies fever with chills. She denies myalgia. She denies fatigue. Her exercise level has remained stable. Intake Vital Signs 05/26/23 10:38 11/27/23 10:18 Height 5 ft 5 ft Weight: 147 lb BMI 28.7 BP 132/66 H Blood Pressure Location Lt brachial Position Sitting Respiration 18 Pulse 71 Pulse Source NIBP Intake Visit Reasons: 6 M FU Aircraft Seat Upholsterer Required: No Accompanied by: None Is patient in pain?: No Allergies lisinopril Allergy (Verified 11/27/23 10:21) Other Medications ???Medication ???Instructions ???Recorded ???Confirmed ???Type atorvastatin 40 mg tablet 40 mg PO DAILY 06/04/16 11/27/23 History cetirizine 10 mg capsule 10 mg PO DAILY 06/04/16 11/27/23 History B-complex with vitamin C 1 cap PO QDAY 01/30/18 11/27/23 History calcium carbonate 600 mg-vitamin 1 tab PO DAILY 01/03/19 11/27/23 History D3 1,000 unit-vitamin K2 90 mcg tab multivitamin 1 tab PO DAILY 01/03/19 11/27/23 History rivaroxaban 15 mg tablet (Xarelto) 15 mg PO DAILY 01/03/19 11/27/23 History fluticasone propionate 50 1 spray intranasal DAILY 03/12/20 11/27/23 History mcg/actuation nasal spray,suspension Lactobacillus acidophilus 1 cap PO DAILY 11/22/22 11/27/23 History losartan 50 mg tablet 50 mg PO BID #180 tabs 01/31/23 11/27/23 Rx potassium chloride 20 mEq 20 meq PO DAILY #90 TABLETS 09/14/23 11/27/23 Rx tablet,extended release(part/cryst) (Klor-Con M) metoprolol succinate 25 mg 25 mg PO DAILY ok to take with 11/20/23 11/27/23 Rx tablet,extended release 24 hr Diltiazem (it is for freq PVC's) #90 tabs diltiazem HCl 180 mg capsule,24 180 mg PO DAILY #90 caps 11/27/23 11/27/23 Rx hr,extended release Ejection fraction %: 60 PFSH Medical History Atherosclerotic heart disease of [place] coronary artery without angina pectoris Nonrheumatic mitral (valve) insufficiency Nonrheumatic tricuspid valve regurgitation Pulmonary hypertension Paroxysmal atrial fibrillation Essential hypertension Hyperlipidemia Surgical History S/P left knee surgery H/O tubal ligation H/O dilation and curettage Family History Brother Heart disease Sister Heart disease Brother CAD (coronary artery disease) Sudden cardiac , Onset Age: 40 Social History Smoking Status: Never smoker alcohol intake: never substance use type: does not use caffeine: Yes Type: coffee Number of servings: 1 what type of physical activity do you participate in: walking and other details: stationary bike frequency: 3-4 times per week seatbelt use: always do you feel safe at home: Yes additional social history: ROS Const Const: Negative for fatigue, weakness, headache(s), frequent falls, difficulty sleeping or excessive sweating Eyes Eyes: Negative for loss of peripheral vision, transient loss of vision, blurry vision, double vision or tunnel vision ENT ENT: Positive for dizziness and balance problems; Negative for headache(s) or Nosebleed/epistaxis Cardio Chest Pain: No Palpitations: No Edema: None Muscle aches with walking: None Resp Respiratory: Positive for SOB with activity (Occasionally with stairs); Negative for SOB at rest, SOB orthopnea SOB lying down, Cough or paroxysmal nocturnal dyspnea GI GI: Positive for nausea; Negative vomiting, heartburn or black,tarry stools : Negative for hematuria Musc Musc: Positive for balance problems; Negative for muscle aches/ myalgia, muscle weaknes (more content not included)... Normal [facility] Lipid Profileon 11-21-2023 Cholesterol [Mass/Vol] 156 mg/dL Normal 200 [facility] Comment on above: Result Comment: <200 mg/dL Desirable 200-240 mg/dL Borderline >240 mg/dL High Risk Performed By: #### L 500.3030, L500.4100 #### [facility] [place], [address] Cholesterol in HDL [Mass/Vol] 70 mg/dL Normal [facility] Comment on above: Result Comment: The drugs N-Acetylcysteine and Metamizole may falsely depress this assay. Reference Range HDL <40 mg/dL Low HDL Cholesterol HDL >or= 60 mg/dL High HDL Cholesterol Performed By: #### L 500.3400, L500.4100 #### [facility] [address] [place], [address] Cholesterol in LDL [Mass/Vol] 69 mg/dL Normal 0-130 [facility] Comment on above: Performed By: #### L 500.3400, L500.4100 #### [facility] [address] [place], [address] Cholesterol in VLDL [Mass/Vol] 17 mg/dL Normal 5-40 [facility] Comment on above: Performed By: #### L 500.3400, L500.4100 #### [facility] [address] [place], [address] Triglyceride [Mass/Vol] 83 mg/dL Normal [facility] Comment on above: Result Comment: The drugs N-Acetylcysteine and Metamizole may falsely depress this assay. Serum Triglycerides Reference Interval Normal <150 mg/dL Borderline high 150 - 199 mg/dL High 200 - 499 mg/dL Very High > or = 500 mg/dL Performed By: #### L 500.3400, L500.4100 #### [facility] [address] [place], [address] Liver Profileon 11-21-2023 Albumin [Mass/Vol] 3.5 g/dL Normal 3.2-5.0 [facility] Comment on above: Performed By: #### L 500.3400, L500.4100 #### [facility] [address] [place], [address] ALK P 87 U/L Normal 45-117 [facility] Comment on above: Performed By: #### L 500.3400, L500.4100 #### [facility] [address] [place], [address] ALT [Catalytic activity/Vol] 31 U/L Normal 13-56 [facility] Comment on above: Performed By: #### L 500.3400, L500.4100 #### [facility] [address] [place], [address] AST [Catalytic activity/Vol] 27 U/L Normal 15-37 [facility] Comment on above: Performed By: #### L 500.3400, L500.4100 #### [facility] [address] [place], [address] Bilirubin [Mass/Vol] 0.60 mg/dL Normal 0.20-1.00 [facility] Comment on above: Result Comment: For patients on eltrombopag therapy, use of Dimension [place] TBIL is not recommended. Performed By: #### L 500.3400, L500.4100 #### [facility] [address] [place], [address] Bilirubin.direct [Mass/Vol] 0.18 mg/dL Normal 0.00-0.30 [facility] Comment on above: Performed By: #### L 500.3400, L500.4100 #### [facility] [address] [place], [address] Globulin (S) [Mass/Vol] 4.0 g/dL Normal 2.2-4.2 [facility] Comment on above: Performed By: #### L 500.3400, L500.4100 #### [facility] [address] [place], [address] T PROT 7.5 g/dL Normal 6.4-8.2 [facility] Comment on above: Performed By: #### L 500.3400, L500.4100 #### [facility] [address] [place], [address] Erasmo 09-11-2023 ELIEN Telephone (OBGYW) ---- NORMA CASTELLANOS ([id number]) 1940 F Date Time Provider Department 09/11/23 MINNIE CHU During your visit today, we recorded the following information about you: Debbi De Jesus 09/11/2023 9:09 AM Signed Patient called in requesting for you to take her on as a new patient for a PCP. I advised that no providers at [place] are accepting new patients at this time. You last saw her in 2013. Please advise, thank you. Ana London MA 09/11/2023 11:29 AM Signed Dwight Benjamin V, DO [place], Jessica; [facility] 1 hour ago (10:23 AM) I see new patients for Musculoskeletal issues, but not as a Primary Care physician. I called and spoke with the patient. Message from Dr. Benjamin given. Patient verbalized understanding. Allergies As of Date: 09/11/2023 Noted Allergy Reaction LISINOPRIL 08/20/2012 3 - Cough seasonal [Other] 09/07/2006 Date Reviewed: 02/27/2018 Reviewed by: Jennifer White LPN - Fully Assessed Reason for Visit: Patient Question [1477] Cmt: New appt? Prescriptions as of 09/11/2023 - rivaroxaban (XARELTO) 15 mg tablet Take 1 tablet by mouth once daily. - vitamin B complex (B COMPLEX 1 ORAL) Take by mouth. - atorvastatin (LIPITOR) 40 mg tablet Take 1 tablet by mouth once daily. - losartan (COZAAR) 50 mg tablet Take 1 tablet by mouth once daily. - diltiazem CR (TIAZAC, TAZTIA XT) 180 mg 24 hr capsule Take 1 capsule by mouth once daily. - estradiol (ESTRACE) 0.01 % (0.1 mg/gram) vaginal cream Apply a pea sized amount to vagina 2-3 times per week. - cetirizine (ZYRTEC) 10 mg tablet Take 1 tablet by mouth once daily. - fluticasone 50 mcg/actuation nasal spray Use 1 [place] in each nostril daily at bedtime. - LACTOBACILLUS ACIDOPHILUS (PROBIOTIC ORAL) Take by mouth. - Calcium-Cholecalcif ton, D3, (CALCIUM 600 + D) 600-125 mg-unit Tab once daily. - fiber(FIBER DIET TAB) 6 tablets daily - ONE DAILY MULTI-VITAMIN TAB Take one(1) tablet daily. 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] 07/31/2008 Routine general medical examination at [facility]*08/24/2009 11/17/2011 Class: Chronic Routine gynecological examination [Z01.419] 08/24/2009 11/17/2011 Class: Chronic Hypertension [I10] 08/06/2012 Atrial fibrillation (HCC) [I48.91] 12/26/2013 Encounter Status:Closed by ANA MOORE on 09/11/23 Normal [facility] Absolute lymphocyte countOrd ered By: Louis York on 05-26-2023 Lymphocytes Auto (Unsp spec) [#/Vol] 1.27 10*3/uL 0.83-4.51 [facility] Basophil percentageOrdered B y: Louis York on 05-26-2023 Basophils/100 WBC (Bld) 0.4 % 0-1 [facility] Chloride [Moles/Vol] 106 mmol/L 98-[address] Eosinophils/100 WBC (Bld) 0.8 % 0-5 [facility] Glucose [Mass/Vol] 98 mg/dL 74-106 [facility] Neutrophils (Bld) [#/Vol] 9.4 10*3/uL 2.0-7.7 [facility] Neutrophils/100 WBC (Bld) 79.2 % 47-70 [facility] Potassium [Moles/Vol] 4.2 mmol/L 3.5-5.1 [facility] Sodium [Moles/Vol] 139 mmol/L 136-145 [facility] WBC (Bld) [#/Vol] 11.9 10*3/uL 4.4-11.0 [facility] Blood erythrocytes count (nu mber/volume)Ordered By: Louis York on 05-26-2023 RBC (Bld) [#/Vol] 4.77 10*6/uL 4.2-5.4 [facility] Blood hemoglobin measurement (mass/volume)Ordered By: Louis oYrk on 05-26-2023 Hemoglobin (Bld) [Mass/Vol] 14.8 g/dL 12.0-15.0 [facility] Blood lymphocytes/100 leukoc ytesOrdered By: Louis York on 05-26-2023 Lymphocytes/100 WBC (Bld) 10.7 % 19-41 [facility] Blood monocytes/100 leukocyt esOrdered By: Louis York on 05-26-2023 Monocytes/100 WBC (Bld) 7.2 % 0-10 [facility] Blood platelet mean volumeOr dered By: Louis York on 05-26-2023 Platelet mean volume (Bld) [Entitic vol] 9.7 fL 6.2-12.0 [facility] Determination of erythrocyte mean corpuscular volume (MCV)Ordered By: Louis York on 05-26-2023 MCV (RBC) [Entitic vol] 94.3 fL 81-99 [facility] Hematocrit Auto (Bld) [Volum e fraction]Ordered By: Louis York on 05-26-2023 Hematocrit (Bld) [Volume fraction] 45.0 % 37-47 [facility] - Chemistry and C hemistry - challengeOrdered By: Louis York on 05-26-2023 CO2 [Moles/Vol] 29.0 mmol/L 21.0-32.0 [facility] Urea nitrogen/Creatinine [Mass ratio] 19.2 mg/mg 10-20 [facility] - Hematology and Cell countsOrdered By: Louis York on 05-26-2023 Erythrocyte distribution width (RBC) [Entitic vol] 45.7 fL 35.1-43.9 [facility] Erythrocyte distribution width (RBC) [Ratio] 13.1 % 11.6-14.6 [facility] Immature granulocytes/100 WBC (Bld) 1.700 % 0.0-0.9 [facility] Comment on above: IG% - Immature Granu locytes (promyelocytes, myelocytes and metamyelocytes) > 1% indicates that a LEFT SHIFT is Present. MCH (RBC) [Entitic mass] 31.0 pg 27.0-32.0 [facility] Nucleated RBC/100 WBC (Bld) [Ratio] 0 % 0-5 [facility] MCHC Auto (RBC) [Mass/Vol]Or dered By: Louis York on 05-26-2023 MCHC (RBC) [Mass/Vol] 32.9 g/dL 32-36 [facility] No Panel InformationOrdered By: Louis York on 05-26-2023 Estimated GFR (MDRD) Amer 73 mL/min >60 [facility] Comment on above: GFR Calc Estimated GFR (MDRD) Non-Af Amer 61 mL/min >60 [facility] Comment on above: Non- GFR Calc Platelets bldOrdered By: Adonay York on 05-26-2023 Platelets (Bld) [#/Vol] 272 10*3/uL 150-450 [facility] Serum or plasma calcium dejuan urement (mass/volume)Ordered By: Louis York on 05-26-2023 Calcium [Mass/Vol] 9.5 mg/dL 8.5-10.1 [facility] Serum or plasma creatinine m easurement (mass/volume)Ordered By: Louis York on 05-26-2023 Creatinine [Mass/Vol] 0.94 mg/dL 0.55-1.02 [facility] Comment on above: The validity of the calculated GFR & GFRAA in patients over 70 years has not been determined. Clinical correlation is essential. Serum or plasma urea nitroge n measurement (mass/volume)Ordered By: Louis York on 05-26-2023 Urea nitrogen [Mass/Vol] 18 mg/dL 7-18 [facility] Thin prep Papanicolaou smear with manual screeningOrdered By: Louis York on 05-26-2023 Thin prep Papanicolaou smear with manual screening 4 5-15 [facility] Basophil percentageOrdered B y: Melody Fry on 05-22-2023 Bilirubin [Mass/Vol] 0.60 mg/dL 0.20-1.00 [facility] Comment on above: For patients on eltr ombopag therapy, use of Dimension [place] TBIL is not recommended. Cholesterol [Mass/Vol] 160 mg/dL <200 [facility] Comment on above: <200 mg/dL Desirable 200-240 mg/dL Borderline >240 mg/dL High Risk Protein [Mass/Vol] 7.7 g/dL 6.4-8.2 [facility] Triglyceride [Mass/Vol] 75 mg/dL <199 [facility] Comment on above: The drugs N-Acetylcy steine and Metamizole may falsely depress this assay.Serum Triglycerides Reference Interval Normal <150 mg/dL Borderline high 150 - 199 mg/dL High 200 - 499 mg/dL Very High > or = 500 mg/dL Direct bilirubinOrdered By: Melody Fry on 05-22-2023 Bilirubin.direct [Mass/Vol] 0.18 mg/dL 0.00-0.30 [facility] Laboratory - Chemistry and C hemistry - challengeOrdered By: Melody Fry on 05-22-2023 ALP [Catalytic activity/Vol] 85 U/L 45-117 [facility] ALT [Catalytic activity/Vol] 28 U/L 13-56 [facility] Globulin (S) [Mass/Vol] 4.2 g/dL 2.2-4.2 [facility] Serum or plasma albumin dejuan urement (mass/volume)Ordered By: Melody Fry on 05-22-2023 Albumin [Mass/Vol] 3.5 g/dL 3.2-5.0 [facility] Serum or plasma cholesterol in HDL measurement (mass/volume)Ordered By: Melody Fry on 05-22-2023 Cholesterol in HDL [Mass/Vol] 74 mg/dL >40 [facility] Comment on above: The drugs N-Acetylcy steine and Metamizole may falsely depress this assay. Reference Range HDL <40 mg/dL Low HDL Cholesterol HDL >or= 60 mg/dL High HDL Cholesterol Serum or plasma cholesterol in VLDL measurement (mass/volume)Ordered By: Melody Fry on 05-22-2023 Cholesterol in VLDL [Mass/Vol] 15 mg/dL 5-40 [facility] Serum or plasma low density lipoprotein (LDL) cholesterol measurement (mass/volume)Ordered By: Melody Fry on 05-22-2023 Cholesterol in LDL [Mass/Vol] 71 mg/dL 0-130 [facility] Thin prep Papanicolaou smear with manual screeningOrdered By: Melody Fry on 05-22-2023 Thin prep Papanicolaou smear with manual screening 21 U/L 15-37 [facility] Basophil percentageOrdered B y: Melody Fry on 11-08-2022 Bilirubin [Mass/Vol] 0.60 mg/dL 0.20-1.00 [facility] Comment on above: For patients on eltr ombopag therapy, use of Dimension [place] TBIL is not recommended. Cholesterol [Mass/Vol] 161 mg/dL <200 [facility] Comment on above: <200 mg/dL Desirable 200-240 mg/dL Borderline >240 mg/dL High Risk Protein [Mass/Vol] 7.3 g/dL 6.4-8.2 [facility] Triglyceride [Mass/Vol] 99 mg/dL <199 [facility] Comment on above: The drugs N-Acetylcy steine and Metamizole may falsely depress this assay.Serum Triglycerides Reference Interval Normal <150 mg/dL Borderline high 150 - 199 mg/dL High 200 - 499 mg/dL Very High > or = 500 mg/dL Direct bilirubinOrdered By: Mleody Fry on 11-08-2022 Bilirubin.direct [Mass/Vol] 0.13 mg/dL 0.00-0.30 [facility] Laboratory - Chemistry and C hemistry - challengeOrdered By: Melody Fry on 11-08-2022 ALP [Catalytic activity/Vol] 87 U/L 45-117 [facility] ALT [Catalytic activity/Vol] 34 U/L 13-56 [facility] Globulin (S) [Mass/Vol] 4.0 g/dL 2.2-4.2 [facility] Serum or plasma albumin dejuan urement (mass/volume)Ordered By: Melody Fry on 11-08-2022 Albumin [Mass/Vol] 3.3 g/dL 3.2-5.0 [facility] Serum or plasma cholesterol in HDL measurement (mass/volume)Ordered By: Melody Fry on 11-08-2022 Cholesterol in HDL [Mass/Vol] 63 mg/dL >40 [facility] Comment on above: The drugs N-Acetylcy steine and Metamizole may falsely depress this assay. Reference Range HDL <40 mg/dL Low HDL Cholesterol HDL >or= 60 mg/dL High HDL Cholesterol Serum or plasma cholesterol in VLDL measurement (mass/volume)Ordered By: Melody Fry on 11-08-2022 Cholesterol in VLDL [Mass/Vol] 20 mg/dL 5-40 [facility] Serum or plasma low density lipoprotein (LDL) cholesterol measurement (mass/volume)Ordered By: Melody Fry on 11-08-2022 Cholesterol in LDL [Mass/Vol] 78 mg/dL 0-130 [facility] Thin prep Papanicolaou smear with manual screeningOrdered By: Melody Fry on 11-08-2022 Thin prep Papanicolaou smear with manual screening 20 U/L 15-37 [facility] Basophil percentageon 2021 Bilirubin [Mass/Vol] 0.50 mg/dL 0.20-1.00 [facility] Work Phone: Comment on above: For patients on eltr ombopag therapy, use of Dimension [place] TBIL is not recommended. Chloride [Moles/Vol] 105 mmol/L 98-107 [facility] Work Phone: Cholesterol [Mass/Vol] 180 mg/dL <200 [facility] Work Phone: Comment on above: <200 mg/dL Desirable 200-240 mg/dL Borderline >240 mg/dL High Risk Glucose [Mass/Vol] 102 mg/dL 74-106 [facility] Work Phone: Comment on above: Fasting Glucose resu lt from 100 to 125 mg/dL suggests IMPAIRED HOMEOSTASIS per A.D.A. criteria. Potassium [Moles/Vol] 4.3 mmol/L 3.5-5.1 [facility] Work Phone: Protein [Mass/Vol] 7.6 g/dL 6.4-8.2 [facility] Work Phone: Sodium [Moles/Vol] 141 mmol/L 136-145 [facility] Work Phone: Triglyceride [Mass/Vol] 88 mg/dL <199 [facility] Work Phone: Comment on above: The drugs N-Acetylcy steine and Metamizole may falsely depress this assay.Serum Triglycerides Reference Interval Normal <150 mg/dL Borderline high 150 - 199 mg/dL High 200 - 499 mg/dL Very High > or = 500 mg/dL Laboratory - Chemistry and C hemistry - challengeon 05-03-2022 ALP [Catalytic activity/Vol] 93 U/L 45-117 [facility] Work Phone: ALT [Catalytic activity/Vol] 28 U/L 13-56 [facility] Work Phone: CO2 [Moles/Vol] 29.0 mmol/L 21.0-32.0 [facility] Work Phone: Globulin (S) [Mass/Vol] 4.1 g/dL 2.2-4.2 [facility] Work Phone: Urea nitrogen/Creatinine [Mass ratio] 19.6 mg/mg 10-20 [facility] Work Phone: No Panel Informationon 05-03 Estimated GFR (MDRD) Amer 76 mL/min >60 [facility] Work Phone: Comment on above: GFR Calc Estimated GFR (MDRD) Non-Af Amer 63 mL/min >60 [facility] Work Phone: Comment on above: Non- GFR Calc Serum or plasma albumin dejuan urement (mass/volume)on 05-03-2022 Albumin [Mass/Vol] 3.5 g/dL 3.2-5.0 [facility] Work Phone: Serum or plasma albumin/glob ulin mass ratioon 05-03-2022 Albumin/Globulin [Mass ratio] 0.9 {ratio} 0.9-2.4 [facility] Work Phone: Serum or plasma calcium dejuan urement (mass/volume)on 05-03-2022 Calcium [Mass/Vol] 9.0 mg/dL 8.5-10.1 [facility] Work Phone: Serum or plasma cholesterol in HDL measurement (mass/volume)on 05-03-2022 Cholesterol in HDL [Mass/Vol] 69 mg/dL >40 [facility] Work Phone: Comment on above: The drugs N-Acetylcy steine and Metamizole may falsely depress this assay. Reference Range HDL <40 mg/dL Low HDL Cholesterol HDL >or= 60 mg/dL High HDL Cholesterol Serum or plasma cholesterol in VLDL measurement (mass/volume)on 05-03-2022 Cholesterol in VLDL [Mass/Vol] 18 mg/dL 5-40 [facility] Work Phone: Serum or plasma creatinine m easurement (mass/volume)on 05-03-2022 Creatinine [Mass/Vol] 0.92 mg/dL 0.55-1.02 [facility] Work Phone: Comment on above: The validity of the calculated GFR & GFRAA in patients over 70 years has not been determined. Clinical correlation is essential. Serum or plasma low density lipoprotein (LDL) cholesterol measurement (mass/volume)on 05-03-2022 Cholesterol in LDL [Mass/Vol] 93 mg/dL 0-130 [facility] Work Phone: Serum or plasma urea nitroge n measurement (mass/volume)on 05-03-2022 Urea nitrogen [Mass/Vol] 18 mg/dL 7-18 [facility] Work Phone: Thin prep Papanicolaou smear with manual screeningon 05-03-2022 Thin prep Papanicolaou smear with manual screening 18 U/L 15-37 [facility] Work Phone: Thin prep Papanicolaou smear with manual screening 7 -15 [facility] Work Phone: Basophil percentageon 2021 Bilirubin [Mass/Vol] 0.50 mg/dL 0.20-1.00 [facility] Work Phone: Comment on above: For patients on eltr ombopag therapy, use of Dimension [place] TBIL is not recommended. Chloride [Moles/Vol] 106 mmol/L 98-107 [facility] Work Phone: Cholesterol [Mass/Vol] 167 mg/dL <200 [facility] Work Phone: Comment on above: <200 mg/dL Desirable 200-240 mg/dL Borderline >240 mg/dL High Risk Glucose [Mass/Vol] 95 mg/dL 74-106 [facility] Work Phone: Potassium [Moles/Vol] 4.2 mmol/L 3.5-5.1 [facility] Work Phone: Protein [Mass/Vol] 7.5 g/dL 6.4-8.2 [facility] Work Phone: Sodium [Moles/Vol] 140 mmol/L 136-145 [facility] Work Phone: Triglyceride [Mass/Vol] 114 mg/dL [facility] Work Phone: Comment on above: The drugs N-Acetylcy steine and Metamizole may falsely depress this assay.Serum Triglycerides Reference Interval Normal <150 mg/dL Borderline high 150 - 199 mg/dL High 200 - 499 mg/dL Very High > or = 500 mg/dL Direct bilirubinon Bilirubin.direct [Mass/Vol] 0.12 mg/dL 0.00-0.30 [facility] Work Phone: Laboratory - Chemistry and C hemistry - challengeon 11-10-2021 ALP [Catalytic activity/Vol] 86 U/L 45-117 [facility] Work Phone: ALT [Catalytic activity/Vol] 27 U/L 13-56 [facility] Work Phone: CO2 [Moles/Vol] 29.0 mmol/L 21.0-32.0 [facility] Work Phone: Globulin (S) [Mass/Vol] 4.1 g/dL 2.2-4.2 [facility] Work Phone: Urea nitrogen/Creatinine [Mass ratio] 26.9 mg/mg 10-20 [facility] Work Phone: No Panel Informationon 11-10 Estimated GFR (MDRD) Amer 82 mL/min >60 [facility] Work Phone: Comment on above: GFR Calc Estimated GFR (MDRD) Non-Af Amer 68 mL/min >60 [facility] Work Phone: Comment on above: Non- GFR Calc Serum or plasma albumin dejuan urement (mass/volume)on 11-10-2021 Albumin [Mass/Vol] 3.4 g/dL 3.2-5.0 [facility] Work Phone: Serum or plasma calcium dejuan urement (mass/volume)on 11-10-2021 Calcium [Mass/Vol] 8.8 mg/dL 8.5-10.1 [facility] Work Phone: Serum or plasma cholesterol in HDL measurement (mass/volume)on 11-10-2021 Cholesterol in HDL [Mass/Vol] 60 mg/dL [facility] Work Phone: Comment on above: The drugs N-Acetylcy steine and Metamizole may falsely depress this assay. Reference Range HDL <40 mg/dL Low HDL Cholesterol HDL >or= 60 mg/dL High HDL Cholesterol Serum or plasma cholesterol in VLDL measurement (mass/volume)on 11-10-2021 Cholesterol in VLDL [Mass/Vol] 23 mg/dL 5-40 [facility] Work Phone: Serum or plasma creatinine m easurement (mass/volume)on 11-10-2021 Creatinine [Mass/Vol] 0.86 mg/dL 0.55-1.02 [facility] Work Phone: Comment on above: The validity of the calculated GFR & GFRAA in patients over 70 years has not been determined. Clinical correlation is essential. Serum or plasma low density lipoprotein (LDL) cholesterol measurement (mass/volume)on 11-10-2021 Cholesterol in LDL [Mass/Vol] 84 mg/dL 0-130 [facility] Work Phone: Serum or plasma urea nitroge n measurement (mass/volume)on 11-10-2021 Urea nitrogen [Mass/Vol] 23 mg/dL 7-18 [facility] Work Phone: Thin prep Papanicolaou smear with manual screeningon 11-10-2021 Thin prep Papanicolaou smear with manual screening 17 U/L 15-37 [facility] Work Phone: Thin prep Papanicolaou smear with manual screening 5 5-15 [facility] Work Phone: Basophil percentageon 2021 Chloride [Moles/Vol] 105 mmol/L 98-107 [facility] Work Phone: Glucose [Mass/Vol] 114 mg/dL 74-106 [facility] Work Phone: Comment on above: Fasting Glucose resu lt from 100 to 125 mg/dL suggests IMPAIRED HOMEOSTASIS per A.D.A. criteria. Potassium [Moles/Vol] 3.4 mmol/L 3.5-5.1 [facility] Work Phone: Sodium [Moles/Vol] 138 mmol/L 136-145 [facility] Work Phone: WBC (Bld) [#/Vol] 11.1 10*3/uL 4.4-11.0 [facility] Work Phone: Blood erythrocytes count (nu mber/volume)on 11-02-2021 RBC (Bld) [#/Vol] 4.80 10*6/uL 4.2-5.4 [facility] Work Phone: Blood hemoglobin measurement (mass/volume)on 11-02-2021 Hemoglobin (Bld) [Mass/Vol] 15.1 g/dL 12.0-15.0 [facility] Work Phone: Blood platelet mean volumeon 11-02-2021 Platelet mean volume (Bld) [Entitic vol] 10.4 fL 6.2-12.0 [facility] Work Phone: Determination of erythrocyte mean corpuscular volume (MCV)on 11-02-2021 MCV (RBC) [Entitic vol] 93.1 fL 81-99 [facility] Work Phone: Hematocrit Auto (Bld) [Volum e fraction]on 11-02-2021 Hematocrit (Bld) [Volume fraction] 44.7 % 37-47 [facility] Work Phone: Laboratory - Chemistry and C hemistry - challengeon 11-02-2021 CO2 [Moles/Vol] 25.0 mmol/L 21.0-32.0 [facility] Work Phone: Magnesium [Mass/Vol] 2.1 mg/dL 1.6-2.6 [facility] Work Phone: Urea nitrogen/Creatinine [Mass ratio] 28.5 mg/mg 10-20 [facility] Work Phone: Laboratory - Hematology and Cell countson 11-02-2021 Erythrocyte distribution width (RBC) [Entitic vol] 43.8 fL 35.1-43.9 [facility] Work Phone: Erythrocyte distribution width (RBC) [Ratio] 12.8 % 11.6-14.6 [facility] Work Phone: MCH (RBC) [Entitic mass] 31.5 pg 27.0-32.0 [facility] Work Phone: MCHC Auto (RBC) [Mass/Vol]on 11-02-2021 MCHC (RBC) [Mass/Vol] 33.8 g/dL 32-36 [facility] Work Phone: No Panel Informationon 11-02 Estimated GFR (MDRD) Amer 84 mL/min >60 [facility] Work Phone: Comment on above: GFR Calc Estimated GFR (MDRD) Non-Af Amer 69 mL/min >60 [facility] Work Phone: Comment on above: Non- GFR Calc Thyroid Stimulating Hormone (TSH) 0.70 uIU/mL 0.358-3.74 [facility] Work Phone: Platelets bldon 11-02-2021 Platelets (Bld) [#/Vol] 277 10*3/uL 150-450 [facility] Work Phone: Serum or plasma calcium dejuan urement (mass/volume)on 11-02-2021 Calcium [Mass/Vol] 9.3 mg/dL 8.5-10.1 [facility] Work Phone: Serum or plasma creatinine m easurement (mass/volume)on 11-02-2021 Creatinine [Mass/Vol] 0.84 mg/dL 0.55-1.02 [facility][1] ster Work Phone: Comment on above: The validity of the calculated GFR & GFRAA in patients over 70 years has not been determined. Clinical correlation is essential. Serum or plasma urea nitroge n measurement (mass/volume)on 11-02-2021 Urea nitrogen [Mass/Vol] 24 mg/dL 7-18 [facility] Work Phone: Thin prep Papanicolaou smear with manual screeningon 11-02-2021 Thin prep Papanicolaou smear with manual screening 8 5-15 [facility] Work Phone: Office Visit: est annualon 0 01-17-2017 Documentation of current medications (procedure) Done Invalid Interpretation Code [facility] Fall risk assessment No Invalid Interpretation Code [facility] Protein mass conc Done [facility] smoking status NHIS Never Invalid Interpretation Code [facility] Tobacco smoking status NHIS Never smoker [facility] Tobacco use [facility] Never smoker Invalid Interpretation Code [facility] Vital Signs Date Time Vital Sign Value Performing Clinician Facility 05-26-2023 10:38-0500 Body height 152.4 cm WAYBILL CLERK-C Morena Caldera Work Phone: [facility] 05-26-2023 10:38-0500 Body mass index (BMI) [Ratio] 28.7 kg/m2 WAYBILL CLERKTy Caldera Work Phone: [facility] 05-26-2023 10:38-0500 Body weight 66.67 kg [employer]BI[employer] CLERK-C Morena Werner Work Phone: [facility] 05-26-2023 10:38-0500 Diastolic blood pressure 71 mm[Hg] [employer]BI[employer] CLERK-C Morena Werner Work Phone: [facility] 05-26-2023 10:38-0500 Heart rate 69 /min [employer] CL[employer]-C Morena Werner Work Phone: [facility] 05-26-2023 10:38-0500 Respiratory rate 16 /min [employer] CLERK-C Morena Werner Work Phone: [facility] 05-26-2023 10:38-0500 Systolic blood pressure 125 mm[Hg] [employer]BILL CLERK-C Morena Werner Work Phone: [facility] 04-10-2023 10:50-0400 Body height 152.4 cm WAYBILL CLERK-C Morena Werner Work Phone: [facility] 04-10-2023 10:40-0400 Body mass index (BMI) [Ratio] 28.8 kg/m2 [employer] CLERK-C Morena Werner Work Phone: [facility] 04-10-2023 10:40-0400 Body weight 66.79 kg WAYBILL CLERK-C Morena Werner Work Phone: [facility] 04-10-2023 10:40-0400 Diastolic blood pressure 74 mm[Hg] WAYBILL CLERK-C Morena Werner Work Phone: [facility] 04-10-2023 10:40-0400 Systolic blood pressure 130 mm[Hg] WAYBILL CLERK-C Morena Werner Work Phone: [facility] 11-22-2022 10:16-0400 Body height 152.[address] Minnie Chu Work Phone: [facility] 11-22-2022 10:16-0400 Body mass index (BMI) [Ratio] 29 kg/m2 Dr. Minnie Chu Work Phone: [facility] 11-22-2022 10:16-0400 Body weight 67.[address] Minnie Chu Work Phone: [facility] 11-22-2022 10:16-0400 Diastolic blood pressure 77 mm[Hg] Dr. Minnie Chu Work Phone: [facility] 11-22-2022 10:16-0400 Heart rate 75 /min Dr. Minnie Chu Work Phone: [facility] 11-22-2022 10:16-0400 Respiratory rate 18 /min Dr. Minnie Chu Work Phone: [facility] 11-22-2022 10:16-0400 Systolic blood pressure 146 mm[Hg] Dr. Minnie Chu Work Phone: [facility] 04-14-2022 10:46-0400 Body height 152.[address] Minnie Chu Work Phone: [facility] Work Phone: 04-14-2022 10:46-0400 Body mass index (BMI) [Ratio] 29.2 kg/m2 Dr. Minnie Chu Work Phone: [facility] Work Phone: 04-14-2022 10:46-0400 Body weight 68.[address] Minnie Chu Work Phone: [facility] Work Phone: 04-14-2022 10:46-0400 Diastolic blood pressure 69 mm[Hg] Dr. Minnie Chu Work Phone: [facility] Work Phone: 04-14-2022 10:46-0400 Heart rate 56 /min Dr. Minnie Chu Work Phone: [facility] Work Phone: 04-14-2022 10:46-0400 Respiratory rate 18 /min Dr. Minnie Chu Work Phone: [facility] Work Phone: 04-14-2022 10:46-0400 SaO2% (BldA) [Mass fraction] 97 % Dr. Minnie Chu Work Phone: [facility] Work Phone: 04-14-2022 10:46-0400 Systolic blood pressure 137 mm[Hg] Dr. Minnie Chu Work Phone: [facility] Work Phone: 01-13-2022 12:59-0400 Body mass index (BMI) [Ratio] 29.2 kg/m2 Dr. Minnie Chu Work Phone: [facility] Work Phone: 01-13-2022 12:59-0400 Body weight 68.[address] Minnie Chu Work Phone: [facility] Work Phone: 01-13-2022 12:59-0400 Diastolic blood pressure 64 mm[Hg] Dr. Minnie Chu Work Phone: [facility] Work Phone: 01-13-2022 12:59-0400 Heart rate 64 /min Dr. Minnie Chu Work Phone: [facility] Work Phone: 01-13-2022 12:59-0400 Respiratory rate 16 /min Dr. Minnie Chu Work Phone: [facility] Work Phone: 01-13-2022 12:59-0400 Systolic blood pressure 136 mm[Hg] Dr. Minnie Chu Work Phone: [facility] Work Phone: 11-22-2021 08:22-0400 Body height 152.[address] Minnie Chu Work Phone: [facility] Work Phone: 11-22-2021 08:22-0400 Body mass index (BMI) [Ratio] 29.5 kg/m2 Dr. Minnie Chu Work Phone: [facility] Work Phone: 11-22-2021 08:22-0400 Body weight 68.[address] Minnie Chu Work Phone: [facility] Work Phone: 11-22-2021 08:22-0400 Diastolic blood pressure 67 mm[Hg] Dr. Minnie Chu Work Phone: [facility] Work Phone: 11-22-2021 08:22-0400 Heart rate 51 /min Dr. Minnie Chu Work Phone: [facility] Work Phone: 11-22-2021 08:22-0400 Respiratory rate 18 /min Dr. Minnie Chu Work Phone: [facility] Work Phone: 11-22-2021 08:22-0400 SaO2% (BldA) [Mass fraction] 96 % Dr. Minnie Chu Work Phone: [facility] Work Phone: 11-22-2021 08:22-0400 Systolic blood pressure 150 mm[Hg] Dr. Minnie Chu Work Phone: [facility] Work Phone: 01-17-2017 11:25-0400 BMI (Body Mass Index) 26.01 kg/m2 Devi Gonzalez NP [facility] 01-17-2017 11:25-0400 Body Temperature 98.6 [degF] Devi Gonzalez NP [facility] 01-17-2017 11:25-0400 BP Diastolic 72 mm[Hg] Devi Gonzalez NP [facility] 01-17-2017 11:25-0400 BP Systolic 142 mm[Hg] Devi Gonzalez NP [facility] 01-17-2017 11:25-0400 Height 157.48 cm Devi Gonzalez NP [facility] 01-17-2017 11:25-0400 Pulse (Heart Rate) 56 /min Devi Gonzalez NP [facility] 01-17-2017 11:250400 Respiratory Rate 16 /min Devi Gonzalez [facility] 01-17-2017 11:25-0400 Weight 64.5 kg Devi Gonzalez [facility]BILL CLERK [facility] Encounters Encounter Date Encounter Type Care Provider Facility Start: 08-13-2024 End: 08-13-2024 ambulatory Morena Werner Facility:[facility] Start: 07-29-2024 End: 07-29-2024 ambulatory Nome Werner Facility:[facility] Start: 06-10-2024 End: 06-10-2024 ambulatory Nome Werner Facility:[facility] Start: 05-24-2024 ambulatory Nome Werner Facility:[facility] Start: 04-19-2024 End: 04-19-2024 ambulatory Devi Gonzalez WAYBILL CLERK Facility:[facility] Start: 04-08-2024 End: 04-08-2024 Emergency department patient visit Karlcamilo De La Cruz Facility:[facility] Start: 11-27-2023 End: 11-27-2023 ambulatory Nome Werner Facility:[facility] Start: 11-21-2023 End: 11-21-2023 ambulatory [facility] Facility:[facility] Start: 09-11-2023 Telephone encounter Minnie Chu MD Work Phone: OB/Gynecology Comment on above: Patient Question (Ne w appt?) Start: 05-26-2023 End: 05-26-2023 ambulatory WAYBILL CLERK-C Morena Caldera Work Phone: [facility] Work Phone: Start: 05-26-2023 End: 05-26-2023 Patient encounter procedure WAYBILL CLERK-C Mornea Caldera Work Phone: [facility] Work Phone: Start: 05-26-2023 End: 05-26-2023 Patient encounter procedure WAYBILL CLERK-C Morena Caldera Work Phone: [facility] Work Phone: Start: 05-22-2023 End: 05-22-2023 Patient encounter procedure WAYBILL CLERK-C Morena Caldera [facility] Work Phone: Start: 04-10-2023 End: 04-10-2023 ambulatory WAYBILL CLERK-C Morena Caldera Work Phone: [facility] Work Phone: Start: 04-10-2023 End: 04-10-2023 Patient encounter procedure WAYBILL CLERK-C Morena Caldera Work Phone: [facility] Work Phone: Start: 11-22-2022 End: 11-22-[address] Minnie Chu Work Phone: [facility] Work Phone: Start: 11-08-2022 End: 11-08-[address] Minnie Chu Work Phone: [facility] Work Phone: Start: 11-08-2022 End: 11-08-[address] Minn[facility] Chu [facility] Work Phone: Start: 05-03-2022 End: 05-03-[address] Minnie Chu Work Phone: [facility] Work Phone: Start: 05-03-2022 End: 05-03-[address] Minnie Chu Work Phone: [facility] Start: 04-14-2022 End: 04-14-[address] Minnie Chu Work Phone: [facility] Start: 03-25-2022 End: 03-25-[address] Minnie Chu Work Phone: [facility] Imaging Start: 01-13-2022 End: 01-13-[address] Minnie Chu Work Phone: [facility] Start: 11-23-2021 Non-patient / Non-visit Dr. Jese Chu Work Phone: [facility] Start: 11-23-2021 End: 11-23-[address] Minnie hCu [facility] Phone[facility] Start: 11-22-2021 End: 11-22-[address] Minnie Chu Work Phone: [facility] Start: 11-10-2021 End: 11-10-[address] Minnie Chu Work Phone: [facility] Start: 11-02-2021 End: 11-02-[address] Minnie Chu Work Phone: [facility] Procedures Date Procedure Procedure Detail Performing Clinician Start: 04-10-2023 Screening mammography WAYBILL CLERKElizabethC Morena Caldera Work Phone: Start: 03-25-[address] Minnie Chu Work Phone: Start: 01-17-2017 Gynecologic examination Routine gynecological exam Devi Gonzalez WAYBILL CLERK Start: 01-17-2017 End: 01-17-2017 Pelvic & Breast Exam (Medicare) Devi Gonzalez WAYBILL CLERK Work Phone: Start: 01-17-2017 Screening mammography Mammogram yearly screening Devi Gonzalez WAYBILL CLERK Plan of Treatment Date Care Activity Detail Author Start: 06-19-2023 Advance Directive Discussion Advance Directive Discussion [facility] Start: 06-19-2023 Depression Assessment Depression Assessment [facility] Start: 02-17-2023 Covid-19 Vaccine () Covid-19 Vaccine () [facility] Start: 02-17-2023 Influenza vaccination [facility] Start: 02-22-2021 Diabetes Screening Diabetes Screening [facility] Start: 03-06-2017 End: 03-06-2017 Appointment Appointment [facility] Start: 02-21-2017 End: 02-21-2017 Transvaginal us, non-ob US Transvaginal [facility] Start: 01-17-2017 End: 01-17-2017 Appointment Appointment [facility] Start: 01-17-2017 End: 01-17-2017 Mammogram, screening Mammogram, Screening, both breasts [facility] Start: 01-17-2017 End: 01-17-2017 Transvaginal us, non-ob US Transvaginal [facility] Start: 01-17-2017 End: 01-17-2017 Us exam, pelvic, complete US Pelvis [facility] Start: 03-02-2011 Urine microalbumin profile DTaP,Tdap,Td Vaccine (1 - Tdap) [facility] Start: 11-26-2009 Pneumococcal Vaccine: 65+ (2 of 2 - PCV) Pneumococcal Vaccine: 65+ (2 of 2 - PCV) [facility] Start: 2001 RSV Vaccine (1 - 1-dose 60+ series) RSV Vaccine (1 - 1-dose 60+ series) [facility] Start: 1991 Shingrix Vaccine (1 of 2) Shingrix Vaccine (1 of 2) [facility] Immunizations Immunization Date Immunization Notes Care Provider Fa cilisolange 03-12-2020 influenza, injectabl e, quadrivalent, preservative free WAYBILL CLERK-C Morena Caldera Work Phone: [facility] 03-12-2020 influenza, seasonal, injectable Dr. Minnie Chu Work Phone: [facility] 03-12-2020 Fluad Quad (65yr up)(PF) 60 mcg (15 mcg x 4)/0.5mL IM syringe (flu vac Dr. Minnie Chu Work Phone: [facility] Work Phone: 05-11-[address] Minnei Chu Work Phone: [facility] 04-01-2014 influenza, seasonal, injectable Minnie Chu MD Work Phone: [facility] 04-01-2014 influenza virus vacc ine, unspecified formulation Minnie Chu MD Work Phone: [facility] 04-07-[address] Minnie Chu Work Phone: [facility] 04-03-2013 influenza virus vacc ine, unspecified formulation Minnie Chu MD Work Phone: [facility] Work Phone: 03-01-2011 tetanus and diphther ia toxoids, adsorbed, preservative free, for adult use (2 Lf of tetanus toxoid and 2 Lf of diphtheria toxoid) Minnie Chu MD Work Phone: [facility] Work Phone: 11-26-[address] Preston Chu Work Phone: [facility] Work Phone: 11-26-2008 pneumococcal vaccine , unspecified formulation Dr. Minnie Chu Work Phone: [facility] 08-04-2008 pneumococcal polysaccharide vaccine, 23 valent Minnie Chu MD Work Phone: [facility] 03-16-2006 influenza virus vacc ine, whole virus Minnie Chu MD Work Phone: [facility] Payers Date Payer Category Payer Self-pay [id number] 2023 Private Health Insurance [id number] 2016 Medicare AETNA MEDICARE A ETNA MEDICARE PPO [id number] 2016-Present [phone] [address] [place] [address] PPO [id number] Unknown [id number] 62 Unknown [id number] 62 Unknown [id number] 62 Unknown [id number] 62 Unknown [id number] 62 Unknown [id number] 62 Unknown [id number] 62 Unknown [id number] 62 Social History Date Type Detail Facility Start: 05-05-2021 End: 05-26-2023 Tobacco smoking status PRIS Unknown if ever smoked [facility] Start: 1940 Sex Assigned At Female W [facility] Start: 10-21-2013 None [facility] Start: 10-21-2013 Spouse/ Signif icant Other [facility] Start: 10-21-2013 Non-smoker [facility] Tobacco smoking status NHIS Never smoked tobacco [facility] Start: 02-02-2022 Alcohol intake 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) [facility] Start: 12-16-2017 End: 05-24-2020 History of Social function [facility] Start: 12-16-2017 End: 05-24-2020 Tobacco use panel [facility] National Score (1-100), lower number is lower risk Not on file [facility] Start: 1940 Sex Assigned At Not on file [facility] Medical Equipment Procedure Code Equipment Code Equipment Origin al Text Equipment Identifier Dates 2MM FIBER TAPE FDA Start: 06-05-2017 2MM FIBER TAPE FDA Start: 06-05-2017 2.6MM CANNULATED DRILL FDA Start: 06-05-2017 32-04MM BL TIP CANNULATED SCRW FDA Start: 06-05-2017 32-04MM BL TIP CANNULATED SCRW FDA Start: 06-05-2017 2MM FIBER TAPE FDA Start: 06-05-2017 2MM FIBER TAPE FDA Start: 06-05-2017 2.6MM CANNULATED DRILL FDA Start: 06-05-2017 32-04MM BL TIP CANNULATED SCRW FDA Start: 06-05-2017 32-04MM BL TIP CANNULATED SCRW FDA Start: 06-05-2017 2MM FIBER TAPE FDA Start: 06-05-2017 2MM FIBER TAPE FDA Start: 06-05-2017 2.6MM CANNULATED DRILL FDA Start: 06-05-2017 32-04MM BL TIP CANNULATED SCRW FDA Start: 06-05-2017 32-04MM BL TIP CANNULATED SCRW FDA Start: 06-05-2017 2.6MM CANNULATED DRILL FDA Start: 06-05-2017 2MM FIBER TAPE FDA Start: 06-05-2017 2MM FIBER TAPE FDA Start: 06-05-2017 32-04MM BL TIP CANNULATED SCRW FDA Start: 06-05-2017 32-04MM BL TIP CANNULATED SCRW FDA Start: 06-05-2017 2.6MM CANNULATED DRILL FDA Start: 06-05-2017 2MM FIBER TAPE FDA Start: 06-05-2017 2MM FIBER TAPE FDA Start: 06-05-2017 32-04MM BL TIP CANNULATED SCRW FDA Start: 06-05-2017 32-04MM BL TIP CANNULATED SCRW FDA Start: 06-05-2017 2.6MM CANNULATED DRILL FDA Start: 06-05-2017 2MM FIBER TAPE FDA Start: 06-05-2017 2MM FIBER TAPE FDA Start: 06-05-2017 32-04MM BL TIP CANNULATED SCRW FDA Start: 06-05-2017 32-04MM BL TIP CANNULATED SCRW FDA Start: 06-05-2017 2.6MM CANNULATED DRILL FDA Start: 06-05-2017 2MM FIBER TAPE FDA Start: 06-05-2017 2MM FIBER TAPE FDA Start: 06-05-2017 32-04MM BL TIP CANNULATED SCRW FDA Start: 06-05-2017 32-04MM BL TIP CANNULATED SCRW FDA Start: 06-05-2017 Note 09-11-2023 Telephone Encounter - Ana Moore MA - 09/11/2023 11:29 AM EDTTelephone Encounter - Debbi De Jesus - 09/11/2023 9:07 AM EDT Note Date & Type Note Facility 09-11-2023 Miscellaneous Notes Formattin g of this note is different from the original. Images from the original note were not included. Dwight Benjamin V, DO Debbi De Jesus; [facility] 1 hour ago (10:23 AM) I see new patients for Musculoskeletal issues, but not as a Primary Care physician. I called and spoke with the patient. Message from Dr. Benjamin given. Patient verbalized understanding. Patient called in requesting for you to take her on as a new patient for a PCP. I advised that no providers at [place] are accepting new patients at this time. You last saw her in 2013. Please advise, thank you. Justina. documented in this encounter [facility] History of Past illness Narrative 08-24-2009 Note Date & Type Note Facility 08-24-2009 History of Past i llness Narrative Problem Noted Date Diagnosed Date Resolved Date Routine general medical exam ination at a health care facility 08/24/2009 11/17/2011 Overview: 08/24/2009, from Dr. Benjamin Routine gynecological examination 08/24/2009 11/17/2011 Overview: Dr. Orantes --> 2009 to [facility] documented as of this encounter (statuses as of 09/11/2023) [facility] Evaluation note Note Date & Type Note Facility Evaluation note No assessment information availa [facility] Work Phone: Evaluation note Note Date & Type Note Facility Evaluation note Diagnosis Onset Date Atherosclerotic heart diseas e of [place] coronary artery without angina pectoris chronic Essential hypertension chron ic Hyperlipidemia chronic Nonrheumatic mitral (valve) insufficiency chronic Nonrheumatic tricuspid valve regurgitation chronic Paroxysmal atrial fibrillation [facility] Work Phone: Evaluation note Note Date & Type Note Facility Evaluation note Diagnosis Onset Date Pulmonary hypertension acute Atherosclerotic heart diseas e of [place] coronary artery without angina pectoris chronic Essential hypertension chron ic Hyperlipidemia chronic Nonrheumatic aortic (valve) insufficiency chronic Nonrheumatic mitral (valve) insufficiency chronic Nonrheumatic tricuspid valve regurgitation chronic Paroxysmal atrial fibrillation 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 Essential hypertension chron ic Hyperlipidemia chronic Paroxysmal atrial fibrillation chronic [facility] Work Phone: Evaluation note Note Date & Type Note Facility Evaluation note Diagnosis Onset Date Pulmonary hypertension acute Atherosclerotic heart diseas e of [place] coronary artery without angina pectoris chronic Essential hypertension chron ic Hyperlipidemia chronic Nonrheumatic aortic (valve) insufficiency chronic Paroxysmal atrial fibrillation chronic [facility] Work Phone: Evaluation note Note Date & Type Note Facility Evaluation note Diagnosis Onset Date Encounter for routine gyneco logical examination noneactive [facility] Work Phone: Evaluation note Note Date & Type Note Facility Evaluation note Diagnosis Onset Date Encounter for routine gyneco logical examination noneactive Atherosclerotic heart diseas e of [place] coronary artery without angina pectoris chronic Essential hypertension chron ic Hyperlipidemia chronic Hypokalemia chronic Nonrheumatic aortic (valve) insufficiency chronic Paroxysmal atrial fibrillation chronic Pulmonary hypertension chron ic [facility] Work Phone: Chief Complaint and Reason for Visit Chief Complaint PER SAMEER L. E-ORDER Chief Complaint PER SAMEER L. E-ORDER EORDER Chief Complaint PER SAMEER L. E-ORDER EORDER 6 M FU MURMUR Reason for Visit Atherosclerotic hear t disease of [place] coronary artery without angina pectoris Essential hypertension Hyperlipidemia Nonrheumatic mitral (valve) insufficiency Nonrheumatic tricuspid valve regurgitation Paroxysmal atrial fibrillation Chief Complaint REQ. SOONER APPT. SCREENING 3 M FU E ORDERS Reason for Visit Pulmonary hypertensi on Atherosclerotic heart disease of [place] coronary artery without angina pectoris Essential hypertension Hyperlipidemia Nonrheumatic aortic (valve) insufficiency Nonrheumatic mitral (valve) insufficiency Nonrheumatic tricuspid valve regurgitation Paroxysmal atrial fibrillation Atherosclerotic heart disease of [place] coronary artery without angina pectoris Essential hypertension Hyperlipidemia Paroxysmal atrial fibrillation Chief Complaint E ORDER 6 M FU Reason for Visit Pulmonary hypertensi on Atherosclerotic heart disease of [place] coronary artery without angina pectoris Essential hypertension Hyperlipidemia Nonrheumatic aortic (valve) insufficiency Paroxysmal atrial fibrillation 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) Reason for Visit Encounter for routin e gynecological examination 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) EORDER 6 M FU EORDERS Reason for Visit Encounter for routin e gynecological examination Atherosclerotic heart disease of [place] coronary artery without angina pectoris Essential hypertension Hyperlipidemia Hypokalemia Nonrheumatic aortic (valve) insufficiency Paroxysmal atrial fibrillation Pulmonary hypertension Family History No Family History Records Found Relationship Condition Age at Onset Recorded Date/T booker brother Cardiac disease Unknown sister Cardiac disease Unknown brother Coronary artery disease Unknown Sudden cardiac 40 Advance Directives No Advanced Directives Records Found Advance Directive Response Recorded Date/ Time Advance Directives No May 26, 2017 4:36pm Living Will No August 25, 2019 12:48pm Power of Clinical Account Liaison No August 24 0 12:48pm Advance Directive Response Recorded Date/ Time Advance Directives No May 26, 2017 3:36pm Living Will No August 25, 2019 11:48am Power of Clinical Account Liaison No August 24 0 11:48am Summary Purpose Additional Source Comments Goals (unrecognized section and content) Goals may be documented in a n alternate sectionGoals may be documented in an alternate sectionGoals may be documented in an alternate sectionGoals may be documented in an alternate sectionGoals may be documented in an alternate sectionGoals may be documented in an alternate sectionGoals may be documented in an alternate section Care Teams (unrecognized sec tion and content) Team Status: Active Member Role Status Dates Dr. Minnie Chu MD Family Provider Active STEFANO Casiano Primary Care Provider Active Team Status: Inactive Member Role Status Dates Dr. Minnie Chu MD Referring Provider Active Louis York NP, WAYBILL CLERK-C Attending Provider Active STEFANO Casiano Primary Care Provider Active Team Status: Inactive Member Role Status Dates STEFANO Casiano Primary Care Provider Active Melody Fry PA, PA Attending Provider, Referr ing Provider Active Team Status: Inactive Member Role Status Dates STEFANO Casiano Primary Care Provider, Referring P rovider Active Devi Gonzalez NP, WAYBILL CLERK-C Attending Provider Active Team Status: Inactive Member Role Status Dates STEFANO Casiano Primary Care Provide r, Attending Provider, Referring Provider Active Team Status: Inactive Member Role Status Dates STEFANO Casiano Primary Care Provider, Referring P rovider Active Louis York NP, WAYBILL CLERK-C Attending Provider Active Team Status: Inactive Member Role Status Dates Morena Caldera , MALU-C Primary Care Provider Active Louis York WAYBILL CLERK, WAYBILL CLERK-C Attending Provider, Referring Pro vider Active Admitting Counselor Relationship Specialty Start Date End Date Minnie Chu MD PCP - General Family Medicine 11/12/14 Source Comments (unrecognize d section and content) In the event this informatio n is protected by the Federal Confidentiality of Alcohol and Drug Abuse Patient Records regulations: The Federal rules restrict any use of the information to criminally investigate or prosecute any alcohol or drug abuse patient.[facility] Reason for Visit (unrecogniz ed section and content) Reason Comments Patient Question New appt? INFORMATION SOURCE (unrecogn ized section and content) DATE CREATED AUTHOR 09/12/2023 [facility] DATE CREATED AUTHOR AUTHOR'S CYNDY ATION 08/16/2024 [facility] FOR RECORDS PERTAINING TO PATIENTS WHO ARE OR HAVE BEEN ENROLLED IN A CHEMICAL DEPENDENCY/SUBSTANCEABUSE PROGRAM, SOME INFORMATION MAY BE OMITTED. This clinical summary was aggregated from multiple sources. Caution should be exercised in using it in the provision of clinical care. This summary normalizes information from multiple sources, and as a consequence, information in this document may materially change the coding, format and clinical context of patient data. In addition, data may be omitted in some cases. CLINICAL DECISIONS SHOULD BE BASED ON THE PRIMARY CLINICAL RECORDS. [employer] provides no warranty or guarantee of the accuracy or completeness of information in this document.
[2025-02-03 09:00] LABS: AST(SGOT) 29 U/L (<=31); Alanine Aminotransfer ALT/SGPT 24 U/L (<=34); Albumin, Serum 4.2 g/dL (3.4-4.8); Alkaline Phosphatase 97 U/L (35-104); Bilirubin, Direct 0.31 mg/dL (0.00-0.30); Globulin 3.3 g/dL (2.2-4.2)
[2025-02-03 09:42] LABS: Cholesterol 160 mg/dL (<=200); Low Density Lipoprotein Calc. 77 mg/dL; Triglycerides 88 mg/dL; Very Low Density Lipoprotein 18 mg/dL (5-40); cholesterol:hdl ratio screen 2.45
== END | disposition home or self-care (01) ==
PROVIDERS: PCP Nurse Practitioner Family; Referring Provider Nurse Practitioner Family; Visit Provider Nurse Practitioner Family
DX: E78.00 Pure hypercholesterolemia, unspecified (principal)
CPT/HCPCS: 36415; 80061; 80076